=== PATIENT | female | born 1955 | race Caucasian/White ===

== ENCOUNTER → 2018-08-02 | Outpatient (CLI) | payer MEDICARE ==
--- NOTE | 2018-08-02 14:48 | Diagnostic Imaging Report ---
EXAMINATION: PA and lateral views of the chest. COMPARISON: None CLINICAL HISTORY: Chronic fatigue DISCUSSION: Lines/tubes: None. Lungs: The lungs are well inflated and clear. No pneumonia or pulmonary edema. Pleura: No pleural effusion or pneumothorax. Heart and mediastinum: The cardiomediastinal silhouette is normal. Bones and soft tissues: No acute bony abnormalities. IMPRESSION: No acute cardiopulmonary abnormalities. Signed by: Dr. Markie Rousseau M.D. on 08/02/2018 2:45 PM
[2018-08-02 15:01] LABS: CREATININE, SERUM 1.9 mg/dL (0.57-1.11)
== END ==
LOC: MRI 13:42
PROVIDERS: ATTEND Internal Medicine Infectious Disease
DX: G93.3 Postviral and related fatigue syndromes (principal); R53.82 Chronic fatigue, unspecified; R06.02 Shortness of breath
CPT/HCPCS: 36415; 71046; 82565; 84520

== ENCOUNTER → 2018-08-09 | Outpatient (CLI) | payer MEDICARE ==
--- NOTE | 2018-08-09 15:55 | Diagnostic Imaging Report ---
EXAMINATION: MRI of the brain without contrast. HISTORY: Memory loss COMPARISON: None. TECHNIQUE: Sagittal T2; axial DWI, T2, FLAIR, T1-IR, T2 gradient echo; coronal FLAIR. IMAGE QUALITY: Adequate. FINDINGS: Parenchyma: 1. No abnormal signal intensity 2. No mass, hemorrhage, acute or chronic infarcts. Skull: Unremarkable. Vessels: Expected flow voids present in the major arteries and dural sinuses. Extra-axial spaces: No abnormal signal intensity or mass effect. Brain volume: Within normal limits for age. Particularly no disproportionate lobar, medial temporal/hippocampal, brain stem or cerebellar atrophy. Ventricles: No hydrocephalus or displacement. 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 Foramen magnum: Unremarkable. Sella: Unremarkable. Paranasal / mastoid sinuses: Nonspecific partial opacification of the left plastic top assembler cells, likely effusion. IMPRESSION: No intracranial abnormalities, particularly no disproportionate lobar atrophy. Signed by: Dr. Jia Webb M.D. on 08/09/2018 3:51 PM
== END ==
LOC: MRI 14:03
PROVIDERS: ATTEND Internal Medicine Infectious Disease
DX: G93.3 Postviral and related fatigue syndromes (principal)
CPT/HCPCS: 70551

== ENCOUNTER → 2018-10-24 | Outpatient (CLI) | payer MEDICARE ==
--- NOTE | 2018-10-24 16:35 | Diagnostic Imaging Report ---
Renal ultrasound. History: CKD Discussion: Transverse and longitudinal images of the kidneys were obtained demonstrating small kidneys bilaterally with increased echogenicities. There is no evidence of hydronephrosis, mass or renal calculus. The right kidney measures 8.2 x 4.2 x 4.2 cm with no measurable cortex. The left kidney measures 8.4 x 3.5 x 3.6 cm with no measurable cortex. The urinary bladder is unremarkable with bilateral urinary jets noted. There is no evidence of free fluid. IMPRESSION: Small echogenic kidneys bilaterally. Signed by: Dr. Jono Whitman DO on 10/24/2018 4:32 PM
== END ==
LOC: US 14:28
PROVIDERS: ATTEND Internal Medicine Nephrology
DX: N18.3 Chronic kidney disease, stage 3 (moderate) (principal)
CPT/HCPCS: 76770; 76857

== ENCOUNTER → 2019-06-08 | Outpatient (CLI) | payer MEDICARE ==
--- NOTE | 2019-06-08 15:36 | Diagnostic Imaging Report ---
EXAM: Renal Ultrasound INDICATION: CKD stage III. COMPARISON: Renal ultrasound 10/24/2018. TECHNIQUE: Transverse and longitudinal images of the kidneys and bladder were obtained. FINDINGS: Right Kidney: Length: Measures 8.3 x 4.1 x 5.1 cm Appearance: Increased echogenicity. Collecting system: No hydronephrosis Stones: None Cyst/Mass: No evidence of solid mass. There is a simple appearing anechoic right mid pole cyst, measuring up to 1 cm. Left Kidney: Length: Measures 10.1 x 4.5 x 4.1 cm Appearance: Increased echogenicity. Collecting system: No hydronephrosis Stones: None Cyst/Mass: Multiple simple appearing anechoic cysts, measuring up to 1 cm. Bladder: Unremarkable. Bilateral ureteral jets are present. IMPRESSION: Increased bilateral renal echogenicity, suggestive of medical renal disease. Bilateral simple renal cysts. Signed by: Dr. Rita Orr MD on 06/08/2019 3:33 PM
== END ==
LOC: US 14:02
PROVIDERS: ATTEND Internal Medicine Nephrology
DX: N18.3 Chronic kidney disease, stage 3 (moderate) (principal)
CPT/HCPCS: 76770; 76857

== ENCOUNTER → 2019-12-13 | Outpatient (CLI) | payer MEDICARE ==
--- NOTE | 2019-12-13 15:48 | Diagnostic Imaging Report ---
Exam: Pelvic ultrasound. History: Pelvic pain Comparison: Renal ultrasound 06/08/2019 Findings: Transabdominal sonographic evaluation of the pelvis. Status post MANUEL/BSO. No mass lesions seen in bilateral adnexa eared the bladder appears unremarkable without wall thickening, stone, or mass lesion. Bilateral ureteral jets visualized. No free fluid in the pelvis. Impression: Status post MANUEL/BSO. No sonographic abnormalities. Signed by: Chloe Fallon MD on 12/13/2019 3:44 PM
== END ==
LOC: US 13:11
PROVIDERS: ATTEND Obstetrics & Gynecology
DX: R10.2 Pelvic and perineal pain (principal); R10.9 Unspecified abdominal pain
CPT/HCPCS: 76856

== ENCOUNTER 2020-01-19 07:50 | Emergency (ER) | payer MEDICARE ==
[~2020-01-19] VITALS: Ht 162.6 cm; Wt 76.2 kg
--- NOTE | 2020-01-19 08:19 | Emergency Department Note ---
History of Present Illnes History of Present Illness Chief Complaint: General Medicine Complaints History of Present Illness This is a 64 year old female PATIENT IN FROM HOME WITH COMPLAINTS OF IN LOWER ABDOMINAL/BACK/RECTAL AREA X 5 DAYS; STATES WAS SEEN AT HER PCP LAST TUESDAY AND THEN THE PAIN WORSENED. PATIENT ALERT AND ORIENTED, RESP EVEN AND NONLABORED, APPEARS IN NO DISTRESS, RATES PAIN 8/10 but ran out of her Harmony. Historian: Patient Arrival Mode: Car City Carrier Assistant Required: No Onset (how long ago): year(s) Location: rectum Quality: pain/spasm Radiation: Reports non-radiation Severity: severe Timing of current episode: intermittent Progression: waxing and waning Chronicity: chronic Context: Denies recent illness Relieving factors: none Exacerbating factors: none Associated symptoms: Reports denies other symptoms Past Medical/Family History Physician Review I have reviewed the patient's past medical and family history. Any updates have been documented here. Past Medical History Recent Fever: No Clinical Suspicion of Infectio: No New/Unexplained Change in Ment: No Past Medical History: Hypothyroidism, Anxiety, Depression, Other Mental Illness, Chronic Back Pain Other Medical History: SEASONAL ALLERGIES BIPOLAR Social History Smoking Cessation: Never Smoker Counseling Performed: No Alcohol Use: None Any Illegal Drug Use: No Physically hurt or threatened: No Family History Family history of heart diseas: No Other Any Pre-Existing Lines (PICC,: No Review of Systems Review of Systems Constitutional: Reports no symptoms EENTM: Reports no symptoms Cardiovascular: Reports no symptoms Respiratory: Reports no symptoms Gastrointestinal: Reports no symptoms Genitourinary: Reports no symptoms Musculoskeletal: Reports as per HPI Integumentary: Reports no symptoms Neurological: Reports no symptoms Psychological: Reports no symptoms Endocrine: Reports no symptoms Hematological/Lymphatic: Reports no symptoms Physical Exam Related Data Allergies: Coded Allergies: aripiprazole (Verified Allergy, Severe, 01/19/20) cephalexin (Verified Allergy, Severe, 01/19/20) gabapentin (Verified Allergy, Severe, 01/19/20) levofloxacin (Verified Allergy, Severe, 01/19/20) metoclopramide (Verified Allergy, Severe, 01/19/20) sulfamethoxazole (Verified Allergy, Severe, 01/19/20) tetracaine (Verified Allergy, Severe, 01/19/20) trazodone (Verified Allergy, Severe, 01/19/20) trimethoprim (Verified Allergy, Severe, 01/19/20) Triage Vital Signs Vital Signs Date Time Temp Pulse Resp B/P (MAP) Pulse Ox O2 Delivery O2 Flow Rate FiO2 01/19/20 08:02 98.6 88 20 168/82 98 Room Air Vital signs reviewed: Yes Physical Exam CONSTITUTIONAL Constitutional: Present well-developed, Present well-nourished HENT HENT: Present normocephalic, Present atraumatic, Present oropharynx clear/ moist, Present nose normal HENT L/R: Present left ext ear normal, Present right ext ear normal EYES Eyes: Reports PERRL, Reports conjunctivae normal NECK Neck: Present ROM normal PULMONARY Pulmonary: Present effort normal, Present breath sounds normal CARDIOVASCULAR Cardiovascular: Present regular rhythm, Present heart sounds normal, Present capillary refill normal, Present normal rate GASTROINTESTINAL Abdominal: Present soft, Present nontender, Present bowel sounds normal GENITOURINARY Genitourinary: Present exam deferred SKIN Skin: Present warm, Present dry MUSCULOSKELETAL Musculoskeletal: Present ROM normal NEUROLOGICAL Neurological: Present alert, Present oriented x 3, Present no gross motor or sensory deficits PSYCHOLOGICAL Psychological: Present mood/affect normal, Present judgement normal Assessment & Plan Medical Decision Making MDM no emergency, chronic recurrent problem, ran out of Harmony Reassessment Reassessment f/u pcp Assessment & Plan Final Impression: (1) Rectal pain Depart Disposition: HOME, SELF-CARE Last Vital Signs Date Time Temp Pulse Resp B/P (MAP) Pulse Ox O2 Delivery O2 Flow Rate FiO2 01/19/20 08:02 98.6 88 20 168/82 98 Room Air MICAELA GRECO MD Jan 19, 2020 08:19
[2020-01-19] MEDS ORDERED: HYDROCODONE/APAP 5MG-325MG TAB ONE (08:26)
[2020-01-19] MEDS ORDERED: HYDROCODONE/APAP 5MG-325MG TAB PO ONE (08:30)
== END 2020-01-19 09:19 | disposition home or self-care (01) ==
LOC: ER 08:15
DX: K62.89 Other specified diseases of anus and rectum (principal); E03.9 Hypothyroidism, unspecified; F41.9 Anxiety disorder, unspecified; F31.9 Bipolar disorder, unspecified; M54.9 Dorsalgia, unspecified; G89.29 Other chronic pain
CPT/HCPCS: 99283

== ENCOUNTER 2020-04-28 10:09 | Inpatient (IN) | payer MEDICARE ==
[~2020-04-28] VITALS: Ht 162.6 cm; Wt 67.3 kg
[2020-04-28 10:39] LABS: BASOPHILS # (AUTO) 0.1 (0.0-0.1); BASOPHILS % 1.7 % (0.0-1.0); EOSINOPHILS # (AUTO) 0.1 (0.0-0.4); EOSINOPHILS % 2.6 % (0.0-6.0); HEMATOCRIT 38.3 % (34.2-44.1); HEMOGLOBIN 12.3 g/dL (12.0-16.0); LYMPHOCYTES # (AUTO) 1.5 (1.0-3.2); MEAN CORPUSCULAR HEMOGLOBIN 32.1 pg (28-32); MEAN CORPUSCULAR HGB CONC 32.1 g/dL (31-35); MONOCYTES # (AUTO) 0.5 (0.2-0.8); MONOCYTES % 11.5 % (4.4-11.3); PLATELET COUNT 249 x10e3/uL (140-360); RED BLOOD COUNT 3.83 x10e6/uL (3.6-5.1)
--- NOTE | 2020-04-28 10:39 | Emergency Department Note ---
History of Present Illnes History of Present Illness Chief Complaint: Respiratory History of Present Illness This is a 65 year old female . Chief Complaint Comment X 2 WEEKS CONTINUOUS SHORTNESS OF BREATH, TIGHTNESS ON LOWER RIBS. NOTHING MAKES IT BETTER OR WORSE. O2 SAY 100%, NO OBVIOUS RESP. DISTRESS, NO USE OF ACCESSORY MUSCLES Historian: Patient Arrival Mode: Car Additional Treatment OPERATIONS RESEARCH ANALYST: NONE Onset (how long ago): week(s) Radiation: Reports back Onset quality: gradual Duration (how long): week(s) Timing of current episode: constant Chronicity: new Past Medical/Family History Physician Review I have reviewed the patient's past medical and family history. Any updates have been documented here. Past Medical History Recent Fever: No Clinical Suspicion of Infectio: No New/Unexplained Change in Ment: No Past Medical History: Hypothyroidism, Anxiety, Depression, Other Mental Illness Other Medical History: SEASONAL ALLERGIES BIPOLAR "PAINFUL BLADDER SYNDROME" Past Surgical History: Hysterectomy, T&A Review of Systems Review of Systems Constitutional: Reports no symptoms EENTM: Reports no symptoms Cardiovascular: Reports no symptoms Respiratory: Reports no symptoms Gastrointestinal: Reports as per HPI, Reports abdominal pain Genitourinary: Reports no symptoms Musculoskeletal: Reports no symptoms Integumentary: Reports no symptoms Neurological: Reports no symptoms Psychological: Reports no symptoms Endocrine: Reports no symptoms Hematological/Lymphatic: Reports no symptoms Physical Exam Related Data Allergies: Coded Allergies: aripiprazole (Verified Allergy, Severe, 04/28/20) cephalexin (Verified Allergy, Severe, 01/19/20) gabapentin (Verified Allergy, Severe, 01/19/20) levofloxacin (Verified Allergy, Severe, 01/19/20) metoclopramide (Verified Allergy, Severe, 01/19/20) sulfamethoxazole (Verified Allergy, Severe, 01/19/20) tetracaine (Verified Allergy, Severe, 01/19/20) trazodone (Verified Allergy, Severe, 01/19/20) trimethoprim (Verified Allergy, Severe, 01/19/20) Triage Vital Signs Vital Signs Date Time Temp Pulse Resp B/P (MAP) Pulse Ox O2 Delivery O2 Flow Rate FiO2 04/28/20 10:18 98.4 86 18 131/67 100 Room Air Vital signs reviewed: Yes Physical Exam CONSTITUTIONAL Constitutional: Present well-developed, Present well-nourished HENT HENT: Present normocephalic, Present atraumatic, Present oropharynx clear/moist, Present nose normal HENT L/R: Present left ext ear normal, Present right ext ear normal EYES Eyes: Reports PERRL, Reports conjunctivae normal NECK Neck: Present ROM normal PULMONARY Pulmonary: Present effort normal, Present breath sounds normal, Present respiratory distress CARDIOVASCULAR Cardiovascular: Present regular rhythm, Present heart sounds normal, Present capillary refill normal, Present normal rate GASTROINTESTINAL Abdominal: Present soft, Present nontender, Present bowel sounds normal GENITOURINARY Genitourinary: Present exam deferred SKIN Skin: Present warm, Present dry MUSCULOSKELETAL Musculoskeletal: Present ROM normal NEUROLOGICAL Neurological: Present alert, Present oriented x 3, Present no gross motor or sensory deficits PSYCHOLOGICAL Psychological: Present mood/affect normal, Present judgement normal Results Laboratory Lab results reviewed: Yes Laboratory comments Laboratory Tests Test 04/28/20 10:31 White Blood Count 4.17 x10e3/uL (4.8-10.8) Red Blood Count 3.83 x10e6/uL (3.6-5.1) Hemoglobin 12.3 g/dL (12.0-16.0) Hematocrit 38.3 % (34.2-44.1) Mean Corpuscular Volume 100.0 fL (81-99) Mean Corpuscular Hemoglobin 32.1 pg (28-32) Mean Corpuscular Hemoglobin Concent 32.1 g/dL (31-35) Red Cell Distribution Width 13.0 % (11.7-14.4) Platelet Count 249 x10e3/uL (140-360) Neutrophils (%) (Auto) 48.0 % (38.7-80.0) Lymphocytes (%) (Auto) 36.0 % (18.0-39.1) Monocytes (%) (Auto) 11.5 % (4.4-11.3) Eosinophils (%) (Auto) 2.6 % (0.0-6.0) Basophils (%) (Auto) 1.7 % (0.0-1.0) Neutrophils # (Auto) 2.0 (2.1-6.9) Lymphocytes # (Auto) 1.5 (1.0-3.2) Monocytes # (Auto) 0.5 (0.2-0.8) Eosinophils # (Auto) 0.1 (0.0-0.4) Basophils # (Auto) 0.1 (0.0-0.1) Absolute Immature Granulocyte (auto 0.01 x10e3/uL (0-0.1) Sodium Level 139 mmol/L (136-145) Potassium Level 3.8 mmol/L (3.5-5.1) Chloride Level 104 mmol/L (98-107) Carbon Dioxide Level 23 mmol/L (22-29) Anion Gap 15.8 mmol/L (8-16) Blood Urea Nitrogen 21 mg/dL (7-26) Creatinine 2.42 mg/dL (0.57-1.11) Estimat Glomerular Filtration Rate 20 ML/MIN (60-) BUN/Creatinine Ratio 9 (6-25) Glucose Level 98 mg/dL (74-118) Calcium Level 10.4 mg/dL (8.4-10.2) Total Bilirubin 0.4 mg/dL (0.2-1.2) Aspartate Amino Transf (AST/SGOT) 15 IU/L (5-34) Alanine Aminotransferase (ALT/SGPT) 11 IU/L (0-55) Alkaline Phosphatase 58 IU/L (40-150) Creatine Kinase 18 IU/L (29-168) Creatine Kinase MB < 1.00 ng/mL (0-4.3) Troponin I < 0.001 ng/mL (0-0.300) B-Type Natriuretic Peptide < 10.0 pg/mL (0-100) Total Protein 7.5 g/dL (6.5-8.1) Albumin 4.0 g/dL (3.5-5.0) Globulin 3.5 g/dL (2.3-3.5) Albumin/Globulin Ratio 1.1 (0.8-2.0) Imaging Imaging results reviewed: Yes Impressions IMPRESSION: 1. There are scattered cortical calcifications of the bilateral kidneys. 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 Kidneys also demonstrate nodular scarring. These findings may relate to prior infection, inflammatory change or ischemic insult. Negative for hydronephrosis or acute appearing surrounding inflammatory changes. 2. Negative for bowel obstruction. No surrounding inflammatory changes are noted. A few nonspecific fluid-filled small bowel loops are noted in the inferior midline abdomen which can be seen in patients with enteritis. Signed by: Dorian Pratt MD on 04/28/2020 1:08 PM Assessment & Plan Medical Decision Making MDM 65-year-old female arrives to the ED with complaints of chest pain and shortness of breath. No evidence of ACS, pericarditis, myocarditis, pulmonary embolism, pneumothorax, pneumonia, Zoster, or esophageal perforation. Historically not abrupt in onset, tearing or ripping, pulses symmetric, no evidence of aortic dissection. Patient continues to complain of chest pain and shortness of breath and required hospital admission for cardiac monitoring Assessment & Plan Final Impression: (1) Chest pain (2) Dyspnea Depart Disposition: ADMITTED Last Vital Signs Date Time Temp Pulse Resp B/P (MAP) Pulse Ox O2 Delivery O2 Flow Rate FiO2 04/28/20 10:18 98.4 86 18 131/67 100 Room Air LUCY HUA DO Apr 28, 2020 10:39
[2020-04-28 11:00] LABS: ALANINE AMINOTRANSFERASE 11 IU/L (0-55); ALBUMIN/GLOBULIN RATIO 1.1 (0.8-2.0); ALKALINE PHOSPHATASE 58 IU/L (40-150); ANION GAP 15.8 mmol/L (8-16); BLOOD UREA NITROGEN 21 mg/dL (7-26); BUN/CREATININE RATIO 9 (6-25); CALCIUM 10.4 mg/dL (8.4-10.2); CARBON DIOXIDE 23 mmol/L (22-29); CHLORIDE 104 mmol/L (98-107); CREATINE KINASE 18 IU/L (29-168); CREATININE, SERUM 2.42 mg/dL (0.57-1.11); EST GLOMERULAR FILTRATION RATE 20 ML/MIN (60-); GLUCOSE 98 mg/dL (74-118); POTASSIUM 3.8 mmol/L (3.5-5.1); SODIUM 139 mmol/L (136-145)
--- NOTE | 2020-04-28 11:12 | Diagnostic Imaging Report ---
TECHNIQUE: Frontal view of the chest. INDICATION: ^Y ^CP ^[id number] ^1025 COMPARISON: 08/02/2018 DISCUSSION: Limited evaluation due to portable technique. Lines and hardware: Stable. Heart and mediastinum: Stable. Lungs and pleura: No focal airspace consolidation. No pleural effusion. No pneumothorax. Soft tissues and bones: No acute abnormality. IMPRESSION: Negative for acute intrathoracic process. Signed by: Dorian Pratt MD on 04/28/2020 11:08 AM
[2020-04-28] MEDS ORDERED: KETOROLAC TROMETHAMINE 30 MG/ML VIAL IV STA (11:35)
[2020-04-28] MEDS ORDERED: LORAZEPAM INJ 2 MG/ML VIAL IV ONE (11:45)
[2020-04-28] MEDS: PHENAZOPYRIDINE HCL 100 MG TAB PO SCH ×2 (11:50→18:00)
[2020-04-28 12:44] LABS: CREATINE KINASE MB < 1.00 ng/mL (0-4.3)
--- NOTE | 2020-04-28 13:12 | Diagnostic Imaging Report ---
EXAM: CT Abdomen and Pelvis WITHOUT intravenous contrast INDICATION: ^Y ^ABD PAIN ^[id number] ^1230. COMPARISON: None. TECHNIQUE: Abdomen and pelvis were scanned utilizing a multidetector helical scanner from the lung base to the pubic symphysis without administration of IV contrast. Coronal and sagittal reformations were obtained. Routine technique was performed. IV CONTRAST: None ORAL CONTRAST: None COMPLICATIONS: None RADIATION DOSE: Total DLP: 322 mGy*cm Dose modulation, iterative reconstruction, and/or weight based adjustment of the mA/kV was utilized to reduce the radiation dose to as low as reasonably achievable. FINDINGS: LOWER THORAX: Basilar scarring/atelectasis is noted. HEPATOBILIARY: No focal hepatic lesions. No biliary ductal dilatation. The gallbladder appears unremarkable. SPLEEN: No splenomegaly. PANCREAS: No focal masses or ductal dilatation. ADRENALS: No adrenal nodules. KIDNEYS/URETERS: Multiple cortical renal calcifications are noted bilaterally with lobular contours. Negative for perinephric fluid collection. Negative for hydronephrosis. Bilateral subcentimeter hypodense lesions are too small to accurately characterize and are probably related to cysts. PELVIC ORGANS/BLADDER: Bladder is unremarkable. Uterus is surgically absent. PERITONEUM / RETROPERITONEUM: No free air or fluid. Small fat-containing umbilical hernia is noted. LYMPH NODES: No lymphadenopathy. VESSELS: Unremarkable. GI TRACT: Limited due to lack of IV and oral contrast. Stomach and portions of the colon are decompressed limiting evaluation. No surrounding inflammatory changes are noted. Normal appendix is noted. Negative for obstruction. There are a few fluid-filled small bowel loops in the inferior midline abdomen, nonspecific. BONES AND SOFT TISSUES: No acute osseous abnormalities. No suspicious lytic or blastic lesion. Left convex curvature of the lumbar spine is noted. Soft tissues are unremarkable. IMPRESSION: 1. There are scattered cortical calcifications of the bilateral kidneys. 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 Kidneys also demonstrate nodular scarring. These findings may relate to prior infection, inflammatory change or ischemic insult. Negative for hydronephrosis or acute appearing surrounding inflammatory changes. 2. Negative for bowel obstruction. No surrounding inflammatory changes are noted. A few nonspecific fluid-filled small bowel loops are noted in the inferior midline abdomen which can be seen in patients with enteritis. Signed by: Dorian Pratt MD on 04/28/2020 1:08 PM
[2020-04-28] MEDS ORDERED: HYDRALAZINE HCL 20 MG/ML VIAL IV PRN (17:30)
[2020-04-28] MEDS ORDERED: ACETAMINOPHEN 325 MG TAB PO PRN (17:30)
[2020-04-28] MEDS: ASPIRIN 81 MG CHEW TAB PO SCH (18:25)
[2020-04-28] MEDS: FAMOTIDINE 20 MG TAB PO SCH (18:26)
--- NOTE | 2020-04-28 19:00 | NUR ---
Patient admitted to unit room 293 from ER. Oriented to room, environment and call light. Call light within reach. Teaching provided to call for assistance or on the onset of pain or SOB.
[2020-04-28 19:17] LABS: CREATINE KINASE 15 IU/L (29-168)
[2020-04-28 19:30] VITALS: BP 15/73
--- NOTE | 2020-04-28 19:39 | Diagnostic Imaging Report ---
Perfusion Lung Scan NOTE: Lung ventilation studies with xenon are not being performed per the recommendation of the Society of Nuclear [employer] and [employer] Imaging. It is not possible to be certain that the ventilation system is adequately disinfected. Ventilation studies with Tc-99m DTPA particles is contraindicated because the delivery by nebulization generates too many water droplets from the patient's airway. Reason for exam: Difficulty breathing; SOB x 2 weeks; history of asthma. Comparison: Chest radiograph 04/28/2020 Discussion: Ventilation images were not obtained. See note above. Perfusion images of the lungs were obtained in multiple projections following intravenous administration of approximately 5.5 mCi of Tc-99m MAA. Distribution of tracer is mildly irregular throughout the lungs. No segmental perfusion defects of any size are identified. The cardiomediastinal silhouette is unremarkable. Impression: 1. Scan findings represent a VERY LOW probability for acute pulmonary embolic disease based on the perfusion-only modified PIOPED II criteria. Concurrent ventilation study would not alter the assigned probability for acute PE. 2. Scan findings are compatible with diffuse parenchymal and/or obstructive lung disease. Signed by: Dr. Genevieve Oreilly M.D. on 04/28/2020 7:36 PM
[2020-04-28] MEDS: KETOROLAC TROMETHAMINE 30 MG/ML VIAL IV PRN (20:00)
[2020-04-28 20:22] VITALS: BP 115/73
[2020-04-28 21:00] VITALS: BP 115/73
[2020-04-28] MEDS ORDERED: MIRALAX17 GM PO (23:10)
[2020-04-28] MEDS ORDERED: [UNRECOGNIZED DRUG - OTHER] PO (23:10)
[2020-04-28] MEDS ORDERED: LAMOTRIGINE100 MG PO (23:10)
[2020-04-28] MEDS ORDERED: ELMIRON100 MG PO ×2 (23:10)
[2020-04-28] MEDS ORDERED: DIOVAN160 MG PO (23:10)
[2020-04-28] MEDS ORDERED: NORCO 5-325 TA1 EACH PO (23:10)
[2020-04-28] MEDS ORDERED: LEVOTHYROXINE50 MCG PO (23:10)
[2020-04-28] MEDS ORDERED: LIDOPATCH1 EACH TOP (23:10)
[2020-04-28] MEDS ORDERED: LEVOCETIRIZINE D5 MG PO (23:10)
[2020-04-28] MEDS ORDERED: PROBIOTIC PO (23:10)
[2020-04-28] MEDS ORDERED: [UNRECOGNIZED DRUG - OTHER] SL (23:10)
[2020-04-28] MEDS ORDERED: CLONAZEPAM0.5 MG PO ×2 (23:10)
[2020-04-28] MEDS ORDERED: PREMARIN VAGINAL CRE VG (23:10)
[2020-04-29] VITALS (8 sets, daily range): BP systolic 94–135; BP diastolic 55–73
[2020-04-29 04:00] LABS: CREATINE KINASE 18 IU/L (29-168)
[2020-04-29] MEDS: KETOROLAC TROMETHAMINE 30 MG/ML VIAL IV PRN (06:13)
--- NOTE | 2020-04-29 06:42 | NUR ---
Page Dr Anupama Scott regarding consult for intersitial cystitis. ( Aleida) Awaiting call back
--- NOTE | 2020-04-29 06:44 | NUR ---
Return call for Dr Anupama Scott. New order for post residual void x1 and place results on chart will see when rounding.
--- NOTE | 2020-04-29 06:45 | NUR ---
Spoke to Dr Jose Antonio Slaughter regarding consult for chest pain and dyspnea. Will see patient.
[2020-04-29 06:55] LABS: BASOPHILS # (AUTO) 0.1 (0.0-0.1); BASOPHILS % 1.1 % (0.0-1.0); EOSINOPHILS # (AUTO) 0.2 (0.0-0.4); EOSINOPHILS % 3.4 % (0.0-6.0); HEMATOCRIT 33.2 % (34.2-44.1); HEMOGLOBIN 10.9 g/dL (12.0-16.0); LYMPHOCYTES # (AUTO) 1.9 (1.0-3.2); LYMPHOCYTES % 44.4 % (18.0-39.1); MEAN CORPUSCULAR HEMOGLOBIN 33.5 pg (28-32); MEAN CORPUSCULAR HGB CONC 32.8 g/dL (31-35); MEAN CORPUSCULAR VOLUME 102.2 fL (81-99); MONOCYTES # (AUTO) 0.5 (0.2-0.8); MONOCYTES % 12.4 % (4.4-11.3); NEUTROPHILS # (AUTO) 1.7 (2.1-6.9); NEUTROPHILS % 38.7 % (38.7-80.0); PLATELET COUNT 205 x10e3/uL (140-360); RED BLOOD COUNT 3.25 x10e6/uL (3.6-5.1); RED CELL DISTRIBUTION WIDTH 12.8 % (11.7-14.4)
[2020-04-29] MEDS: CLONAZEPAM 0.5 MG TAB PO PRN ×2 (06:57→12:56)
--- NOTE | 2020-04-29 07:05 | NUR ---
Bedside report and walking rounds completed with oncoming nurse. Patient in bed with call light within reach. No issues or concerns noted.
--- NOTE | 2020-04-29 07:15 | NUR ---
Post residual void 169ml.
[2020-04-29 07:25] LABS: CALCIUM 9.3 mg/dL (8.4-10.2); CREATININE, SERUM 3.03 mg/dL (0.57-1.11)
[2020-04-29 07:33] LABS: THYROID STIMULATING HORMONE 0.204 uIU/mL (0.350-4.940)
[2020-04-29 07:45] LABS: CHOL/HDL RATIO 3.2 (3.0-3.6)
--- NOTE | 2020-04-29 08:05 | NUR ---
RECEIVED PATIENT RESTING IN BED. VERBALIZED 7/10 RIGHT FLANK PAIN. PT IN STABLE CONDITION AND IN NO DISTRESS. CALL LIGHT WITHIN REACH. WILL CONTINUE TO MONITOR.
--- NOTE | 2020-04-29 08:05 | NUR ---
CORRECTION. PT COMPLAINED 6/10 BLADDER PAIN.
[2020-04-29] MEDS: PHENAZOPYRIDINE HCL 100 MG TAB PO SCH ×3 (09:31→17:54)
[2020-04-29] MEDS: FAMOTIDINE 20 MG TAB PO SCH ×2 (09:31→17:54)
[2020-04-29] MEDS: ASPIRIN 81 MG CHEW TAB PO SCH (09:31)
[2020-04-29] MEDS ORDERED: B&O 60MG R/S 60 MG SUPP PR PRN (09:45)
[2020-04-29 11:58] LABS: CLARITY,URINE CLEAR (CLEAR); COLOR,URINE ORANGE (YELLOW); LEUKOCYTE ESTERASE ,URINE NEGATIVE (NEGATIVE); NITRITE,URINE POSITIVE (NEGATIVE)
[2020-04-29 11:59] LABS: BILIRUBIN,URINE NEGATIVE (NEGATIVE); KETONES,URINE NEGATIVE (NEGATIVE); PROTEIN,URINE DIPSTICK NEGATIVE (NEGATIVE); URINE UROBILINOGEN 0.2 mg/dL (0.2 - 1)
[2020-04-29 12:09] LABS: BACTERIA,URINE FEW /HPF; EPITHELIAL CELLS,URINE RARE /LPF; RBC,URINE 0-5 /HPF (0-5); WBC,URINE (MAN) 0-5 /HPF (0-5)
--- NOTE | 2020-04-29 12:10 | Consultation ---
DATE OF CONSULTATION: Pulmonary Critical Care Consultation. CHIEF COMPLAINT: Dyspnea HISTORY OF PRESENT ILLNESS: The patient is a 65-year-old woman with a history of recurrent chronic kidney disease and prior pyelonephritis. She also has a history of asthma. For over the past two weeks, she has noticed increased dyspnea. She has tightness when she breathes and a sense of air hunger. She has a vague sense of pain in her chest. She does not complain of any fevers. She has minimal cough. PAST SURGICAL HISTORY: 1. Status post hysterectomy. 2. Status post tonsillectomy. PAST MEDICAL HISTORY: 1. Chronic kidney disease. 2. Interstitial cystitis. 3. Bipolar illness. 4. Hypothyroidism. ALLERGIES: THE PATIENT IS ALLERGIC TO LEVOFLOXACIN, SULFAMETHOXAZOLE, TRAZODONE AND CEPHALEXIN. SOCIAL HISTORY: The patient is not an active drinker. She was a prior smoker. FAMILY HISTORY: Noncontributory. REVIEW OF SYSTEMS: No fever. No headache. She is not complaining of any neck pain. She does have some dyspnea and some vague chest tightness. She has no abdominal pain. She has no nausea or vomiting. She has no leg edema. PHYSICAL EXAMINATION: VITAL SIGNS: The blood pressure is 120/65 and the pulse is 67. The saturation is 100%. HEENT: Shows no facial swelling or erythema. LYMPHATIC: Shows no submandibular, cervical, or supraclavicular adenopathy. CARDIAC: Reveals regular rate and rhythm with normal S1 and S2. LUNGS: Auscultation of lungs reveals clear breath sounds bilaterally. There is no wheezing. ABDOMEN: Soft and nontender. There is no rebound or guarding. EXTREMITIES: Shows no leg edema or calf tenderness. There is no cyanosis or clubbing. SKIN: Shows no rashes. NEUROLOGICAL: Shows no focal abnormalities. LABORATORY DATA: White blood cell count is 4.35, hemoglobin is 10.9. The platelet count is 205. The BUN to creatinine ratio is 29 to 3.03 and the other electrolytes are within normal limits. RADIOGRAPHIC DATA: Chest x-ray shows no active disease. V/Q scan shows no evidence of pulmonary emboli. IMPRESSION: 1. Dyspnea of unclear cause. 2. Chronic renal insufficiency, stage IV. 3. Interstitial cystitis. 4. Recurrent pyelonephritis. 5. Hypothyroidism. 6. Bipolar illness. PLAN: 1. Obtain echocardiogram. 2. Wean oxygen as needed. 3. Bronchodilators as needed. MD ENRIQUETA Pelayo/YADIEL /[id number]
--- NOTE | 2020-04-29 13:16 | Consultation ---
DATE OF CONSULTATION: 04/29/2020 Urology Consultation REASON FOR CONSULTATION: Interstitial cystitis. HISTORY OF PRESENT ILLNESS: Frida Dhillon is a 65-year-old woman who is being managed by a joss house keeper. The joss house keeper had closed her practice and referred her to Dr. Blake Parnell, who is urogynecologist. The patient has not had a urodynamic, has not had a cystoscopy and not had a hydrodistention if she was started on interstitial cystitis treatment with an intravesical cocktail. The patient reports bladder pain. She has incomplete bladder emptying with a postvoid residual by bladder scan of 169 this morning. The patient also has dysuria. She reports both stress and urge type urinary incontinence, also reports recurrent urinary tract infections. PAST MEDICAL/SURGICAL HISTORY: 1. Numerous allergies. 2. Bipolar disorder. 3. "Painful bladder syndrome.". 4. Status post hysterectomy. 5. Status post tonsillectomy and adenoidectomy. 6. Chronic renal insufficiency. CURRENT MEDICATIONS: Please refer to the MAR. ALLERGIES: PLEASE REFER TO THE MAR. SOCIAL HISTORY: The patient denies current smoking, ethanol, and drug use. FAMILY HISTORY: Noncontributory to the active urological problems. REVIEW OF SYSTEMS: Discussed as above history of present illness, past medical history, otherwise negative for all systems. PHYSICAL EXAMINATION: GENERAL: Healthy-appearing 65-year-old woman, lying in bed, no apparent distress, she is currently afebrile. VITAL SIGNS: Stable. ABDOMEN: Soft, nondistended, nontender without costovertebral angle tenderness, kidneys not palpable without hepatosplenomegaly. No obvious evidence of hernia. For the remaining physical examination systems, please refer to the admission history and physical in chart. LABORATORY STUDIES: White blood cell count is low at 4350, hemoglobin 10.9, and platelets 205,000. The patient's creatinine is 3.03, which is elevated from where was in the ER 2.42. COVID testing is pending. CT scan of the abdomen and pelvis was done without contrast. It revealed multiple cortical calcifications bilaterally with lobular contour and bilateral hypodense lesions consistent with small cysts evaluate on study. No hydronephrosis was noted. There were no acute inflammatory changes. There is no urinalysis noted and despite the complaint related to the urinary tract. Even note the patient's admission was for shortness of breath. ASSESSMENT: 1. Possible interstitial cystitis. 2. Incomplete bladder emptying. 3. Dysuria. 4. Mixed-type urinary incontinence. 5. Urinary tract infections. 6. Chronic renal insufficiency. 7. Leukopenia. 8. Anemia. 9. Bilateral renal cysts. PLAN: 1. B and O suppositories as needed. 2. Catheterized urine for urinalysis with microscopy and urine culture. 3. The patient is to follow up in the office for urodynamic study. I would not continue interstitial cystitis treatment without the appropriate workup for interstitial cystitis first. Thank you much for involving us in care of your patient. We will be happy to follow along with you as well as an outpatient. MD ISAIAS Rivers/YADIEL /[id number]
[2020-04-29 14:01] LABS: CREATINE KINASE 21 IU/L (29-168)
[2020-04-29 16:10] LABS: CREATINE KINASE MB < 1.00 ng/mL (0-4.3)
--- NOTE | 2020-04-29 16:10 | NUR ---
Nutrition Screen Note RD Recommendation for Physician: Continue diet as ordered Plan of Care: RD following, monitoring for tolerance and adequacy Nutrition reason for involvement: MST Primary Diagnose(s): Chest pain, dyspnea Ht:64 in Wt:148.38lbs BMI:25.5 kg/m2 IBW:120lbs RD Assessment:(04/29/2020) Initial encounter with patient. Pt with a diagnosis of interstitial cystitis and has provided a list of potential trigger foods she avoids: spicy foods, fried foods, onions, tomatoes, caffeine, carbonated beverages, acidic foods, refined sugars. Pt denies any nausea, vomiting, or diarrhea. Pt denies any difficulty chewing or swallowing. Pt denies any known food allergies. Good appetite/PO intake. Pt states that she has lost about 20lbs over the past 4 months due to lifestyle/diet changes. Current Diet: Cardiac diet. Malnutrition Evaluation (04/29/2020) The patient does not meet criteria for a specified degree of malnutrition at this time. Will re-evaluate at follow-up as appropriate. Diet Education Needs Assessment: Diet education not indicated. Diet Adequacy: Meeting calorie needs, Meeting protein needs, Meeting fluid needs Tolerance: Tolerating PO Nutrition Care Level: Jus Jeff RD,LD,CNSC
[2020-04-29] MEDS ORDERED: CONJUGATED ESTROGENS VG SCH (17:00)
[2020-04-29] MEDS ORDERED: POLYETHYLENE GLYCOL 3350 17 GM PACK PO PRN (17:00)
[2020-04-29] MEDS ORDERED: LIDOCAINE 4% PATCH TP PRN (17:00)
[2020-04-29] MEDS: SODIUM CHLORIDE 0.9% 1000ML 1,000 ML IV SCH (17:54)
[2020-04-29] MEDS: HYDROCODONE/APAP 5MG-325MG TAB PO PRN (17:55)
--- NOTE | 2020-04-29 19:22 | Consultation ---
DATE OF CONSULTATION: Initial Nephrology Consultation Report REASON FOR CONSULTATION: Acute kidney injury. HISTORY OF PRESENT ILLNESS: Ms. Frida Dhillon is a 65-year-old female, who is well known to my associate, Dr. Arevalo. The patient was admitted to the hospital this time because of some shortness of breath that had been going on. The patient follows up with Dr. Arevalo in his Nephrology Clinic. She was last seen by him as a tele health visit about a few days ago. Apparently, at that time, she was prescribed maybe some Augmentin for urinary tract infection. The patient has chronic kidney disease secondary to chronic lithium use/hypertension. Apparently, her last creatinine it went from 1.8 to about 1.6. She also has been referred to Hematology for monoclonal gammopathy of unknown significance. PAST MEDICAL HISTORY: The patient has a history of hypertension, anxiety, and bipolar disorder. The patient has been on lithium for several years. She has history of asthma, history of hypothyroidism, history of chronic fatigue syndrome, fibromyalgia, and chronic kidney disease stage 3. PAST SURGICAL HISTORY: She has had history for breast tumor removed, tonsillectomy, hysterectomy, surgery of the right knee, and hemorrhoidectomy. REVIEW OF SYSTEMS: As per HPI. PHYSICAL EXAMINATION: VITAL SIGNS: Blood pressure 119/73, pulse 77, and respirations 17. GENERAL: The patient is in no acute distress. HEENT: No increased JVD. CARDIOVASCULAR: Regular rate and rhythm. LUNGS: Decreased breath sounds at bases bilaterally, otherwise clear to auscultation. ABDOMEN: Positive bowel sounds. EXTREMITIES: No edema, cyanosis, or clubbing. LABORATORY RESULTS: Sodium 139, potassium 4, chloride 107, bicarbonate 23, BUN and creatinine 29 and 3.0 respectively. Urinalysis shows positive nitrite only, everything else is negative. IMPRESSION/PLAN: 1. Acute kidney injury, superimposed on chronic kidney disease. 2. Chronic kidney disease. 3. Shortness of breath. 4. Monoclonal gammopathy of unknown significance. 5. Acute kidney injury. PLAN: At the present time, NSAIDs, SHARP-2 inhibitors, and IV contrast should be avoided. Her renal function seems to have deteriorated. Her creatinine has risen sharply. I will start some IV fluids just for 1 L to correct any prerenal component. CT of the abdomen rules out hydronephrosis. Urine culture has been sent to see if she has any urinary tract infection. I will follow the patient with you. Thank you, Dr. Xiao, for allowing me to participate in the care of this patient with you. Ather MD DEMARCO Aguilar/YADIEL /[id number]
[2020-04-29] MEDS: LORAZEPAM INJ 2 MG/ML VIAL IV PRN (19:41)
--- NOTE | 2020-04-29 19:53 | NUR ---
PATIENT AMBULATING FROM RESTROOM BACK TO BED. NON SKID SOCKS APPLIED. PT IN NO DISTRESS. RESPIRATIONS EVEN AND BREATHING UNLABORED. TELE APPLIED. IV INFUSING AT 75 ML/HR. PT VOIDED 150 ML OF URINE.BEDSIDE SHIFT REPORT GIVEN TO ONCOMING NURSE.
[2020-04-29] MEDS ORDERED: POLYETHYLENE GLYCOL 3350 17 GM PACK PO SCH (21:00)
[2020-04-29] MEDS: LORATADINE 10 MG TAB PO SCH (21:00)
[2020-04-29] MEDS ORDERED: NON-FORMULARY MEDICATION (Levocetirizine Dihydrochloride 1 TAB) PO SCH (21:00)
[2020-04-29] MEDS: CLONAZEPAM 0.5 MG TAB PO SCH (21:47)
--- NOTE | 2020-04-29 22:48 | History and Physical ---
PCP: Dr. Roberta Ramirez. OUTPATIENT UROGYNECOLOGIST: Dr. Blake Parnell. OUTPATIENT PSYCHIATRIST: Dr. Newsome. CONSULTING PHYSICIANS: 1. Dr. Davon Arevalo with Nephrology. 2. Dr. Denzel Scott with Urology. 3. Dr. Terrence Slaughter with Pulmonology. CHIEF COMPLAINT: Shortness of breath and chest pain. HISTORY OF PRESENT ILLNESS: The patient is a 65-year-old female admitted via the emergency department with increased dyspnea over the past 2 weeks. She reported tightness when she breathes and a sense of air hunger with a vague sense of chest pain to the last dipper. The patient states "the air feels toxic." Her dysuria from the "painful bladder syndrome" is constant, states that it has been going on for over 10 years. The patient reports urinating less amount than usual. She was very anxious last night due to the bladder pain and received one time dose of Ativan, which was beneficial. She is currently seen in room 293, in no acute distress, alone. PAST MEDICAL HISTORY: Recurrent chronic kidney disease, pyelonephritis, asthma, interstitial cystitis, "painful bladder syndrome," bipolar illness, anxiety, chronic fatigue syndrome, hypothyroidism, hypertension, recurrent UTIs, numerous allergies, irritable bowel syndrome. PAST SURGICAL HISTORY: Hysterectomy, tonsillectomy, hemorrhoidectomy in 2019, right breast tumor removed which was benign and possibly other surgeries. FAMILY HISTORY: Father had obstructive sleep apnea, neither had an PA or CVA. Mother had CHF, hypertension, and hypothyroidism. SOCIAL HISTORY: The patient smoked half a pack a day for 2 or 3 years and quit in her 20s. She drank some alcohol in her 20s, but has since quit. She also smoked marijuana and used cocaine when she was in her 20s, but quit. ALLERGIES: SHE HAS MULTIPLE ALLERGIES. REGLAN/METOCLOPRAMIDE, TRAZODONE, GABAPENTIN, TRIMETHOPRIM, SULFA/SULFAMETHOXAZOLE, CEPHALEXIN, TETRACAINE, ABILIFY, BACTRIM, AND LEVAQUIN. HOME MEDICATIONS: Clonazepam 0.5 mg at bedtime and one-quarter tablet p.r.n., Elmiron 100 mg 2 capsules before breakfast, one capsule before dinner, lamotrigine 200 mg after breakfast, levocetirizine 5 mg tablet at bedtime, levothyroxine 50 mcg tablet before breakfast, lidocaine patches 5% p.r.n., Premarin vaginal cream 0.5 g Tuesday, Tuesday and Tuesday, valsartan 160 mg tablet after breakfast, hydrocodone APAP 5/125 mg p.r.n., B12 5000 mcg tablet chewed and one sublingual p.r.n., MiraLAX 17 g at bedtime, and Renadyl probiotic 2 capsules daily. REVIEW OF SYSTEMS: CONSTITUTIONAL: The patient states she has had unintentional weight loss of 20 pounds in the last 4 months, possibly due to difficulty in eating, which she attributes to the shortness of breath. She denies chills or fever. EYES, EARS, NOSE, AND THROAT: She wears glasses, otherwise no complaints. RESPIRATORY: Per history of present illness and apparently affecting her ability to eat. GENITOURINARY: Stress and urge urinary incontinence, dysuria, and incomplete bladder emptying. PSYCHIATRIC: Takes clonazepam at home. Has known underlying anxiety and bipolar illness. INTEGUMENTARY: No complaints. CARDIOVASCULAR: No complaints of chest pain or palpitations. GASTROINTESTINAL: She does have nausea. States her last bowel movement was Tuesday. She has IBS and has had lots of gas. She states she has constipation without use of MiraLAX and would like that restarted. MUSCULOSKELETAL: No specific complaints of muscle weakness. Has underlying history of chronic fatigue syndrome. No complaints of muscle cramps. NEUROLOGIC: Tingling down the legs, more so than the arms. Recent headache and dizziness. ENDOCRINE: Denies history of prediabetes or diabetes. HEMATOLOGIC/LYMPHATIC: No complaints of bleeding or bruising. PHYSICAL EXAMINATION: VITAL SIGNS: Temperature 98.0, afebrile, pulse 77, blood pressure 119/73, respirations 17, and oxygen saturation 99% on room air. Height 5 feet 4 inches, weight 140 pounds, BMI 25.4. GENERAL: Supine in bed. No acute distress. Anxious. LUNGS: Clear to auscultation, diminished in the bases. Respiratory pattern even and unlabored. No supplemental oxygen. HEENT: EOMI. Oropharynx clear. NECK: Supple. No lymphadenopathy, thyromegaly, or JVD. CARDIOVASCULAR: Regular rate and rhythm. No murmur. ABDOMEN: Bowel sounds positive. Soft and nontender. EXTREMITIES: No pitting edema. No clubbing, cyanosis, or signs of DVT. NEUROLOGICAL: GCS 15. Nonfocal. LABORATORY DATA: Today, WBCs 4.35, hemoglobin 10.9, hematocrit 33.2, and platelets 205. Sodium 139, potassium 4.0, chloride 107, CO2 23, BUN 29, creatinine 3.03 (2.42), estimated GFR 15 (20), glucose 90, and calcium 9.3. Creatine kinase 21, CK-MB less than 1, and troponin I 0.004. Cardiac biomarkers negative x4 sets. Triglycerides 104, cholesterol 154, LDL 85, HDL 48, and TSH 0.204. Urinalysis; pH 5, specific gravity 1.01, nitrite positive, leukocyte esterase negative, few bacteria. Coronavirus PCR collected 04/28, remains pending. Urine culture and sensitivity pending. B-type natriuretic peptide was less than 10. IMAGING/OTHER: Bladder scan done today showed postvoid residual of 169 mL at 7:15 this morning. Echocardiogram has been ordered and is pending. V/Q lung scan negative. Chest x-ray negative for acute intrathoracic process. CT of the abdomen and pelvis done 04/28, showed scattered cortical calcifications of the bilateral kidneys. 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 Kidneys also demonstrate nodular scarring. Negative for bowel obstruction. ASSESSMENT/PLAN: 1. Acute kidney injury on chronic kidney disease, stage 4 with long-term use of lithium. I will change the patient from cardiac diet to renal diet. Nephrology following, appreciate recommendations. BUN 29, creatinine 3.03, estimated GFR 15 with worsening of values noted. We will get a lithium level in the morning. Serial daily BMP. 2. Dyspnea, etiology idiopathic. Pulmonology consulted and following. Currently, the patient not requiring supplemental oxygen. Respirations even and nonlabored. Chest x-ray negative. V/Q scan negative. Follow up on echocardiogram results. Monitor. 3. Possible interstitial cystitis. Urology consulted and following. Appreciate recommendations. 4. Possible acute urinary tract infection, present on admission, with recurrent pyelonephritis. Await final urine culture and sensitivity results. Continue Pyridium and belladonna. 5. Hypothyroidism. TSH 0.204. We will change her levothyroxine dose from 50 to 25 mcg daily. 6. Bipolar illness and severe anxiety. The patient currently calm, but states her anxiety was severe last night and that the Ativan helped. We will continue her clonazepam, which she uses at home and had p.r.n. Ativan. 7. Irritable bowel syndrome. We will add MiraLAX b.i.d. p.r.n. 8. Prophylaxis. Lina, SCDs. History and physical, observation status, billing code [id number], time spent 70 minutes. Dictated by Tan Tapia, VOCATIONAL NURSING INSTRUCTOR MD ALESSANDRA LermaP/MODL /[id number]
[2020-04-30] VITALS (9 sets, daily range): BP systolic 110–151; BP diastolic 49–87
[2020-04-30] MEDS: SODIUM CHLORIDE 0.9% 1000ML 1,000 ML IV SCH (05:40)
[2020-04-30] MEDS ORDERED: LEVOTHYROXINE SODIUM 50 MCG TAB PO SCH ×2 (06:00)
[2020-04-30] MEDS: LEVOTHYROXINE SODIUM 25 MCG TABLET PO SCH (06:04)
[2020-04-30 06:39] LABS: BASOPHILS # (AUTO) 0.1 (0.0-0.1); EOSINOPHILS # (AUTO) 0.2 (0.0-0.4); EOSINOPHILS % 3.5 % (0.0-6.0); HEMATOCRIT 30.1 % (34.2-44.1); HEMOGLOBIN 9.8 g/dL (12.0-16.0); LYMPHOCYTES # (AUTO) 1.8 (1.0-3.2); LYMPHOCYTES % 34.4 % (18.0-39.1); MEAN CORPUSCULAR HEMOGLOBIN 32.2 pg (28-32); MEAN CORPUSCULAR HGB CONC 32.6 g/dL (31-35); MONOCYTES # (AUTO) 0.6 (0.2-0.8); MONOCYTES % 11.2 % (4.4-11.3); NEUTROPHILS # (AUTO) 2.5 (2.1-6.9); NEUTROPHILS % 49.7 % (38.7-80.0); PLATELET COUNT 190 x10e3/uL (140-360); RED BLOOD COUNT 3.04 x10e6/uL (3.6-5.1); RED CELL DISTRIBUTION WIDTH 12.3 % (11.7-14.4)
[2020-04-30 07:06] LABS: MAGNESIUM 1.8 MG/DL (1.3-2.1); PHOSPHORUS 4.5 MG/DL (2.3-4.7)
--- NOTE | 2020-04-30 07:25 | NUR ---
Bedside report and waling rounds completed with oncoming nurse. Patient in bed with call light within reach. No concerns noted. Patient requesting to speak to charge nurse.
--- NOTE | 2020-04-30 07:28 | NUR ---
Charge nurse notified that patient requesting to speak to charge nurse.
[2020-04-30 07:32] LABS: CALCIUM 8.7 mg/dL (8.4-10.2); CREATININE, SERUM 2.74 mg/dL (0.57-1.11)
--- NOTE | 2020-04-30 08:15 | NUR ---
Pt request to speak with Charge nurse, pt request change of attending from Dr. Singer to Dr. Flores, will notify both Physicians of change.
--- NOTE | 2020-04-30 08:20 | NUR ---
spoke with Dr. Singer re: patient request change of attending to Dr. Yuki Flores, paged Dr. Flores awaiting call back,
[2020-04-30] MEDS: LACTOBACILLUS ACIDOPHILUS CAPSULE PO SCH (08:36)
[2020-04-30] MEDS: VALSARTAN 160 MG TAB PO SCH (08:36)
[2020-04-30] MEDS: PHENAZOPYRIDINE HCL 100 MG TAB PO SCH ×3 (08:37→15:54)
[2020-04-30] MEDS: FAMOTIDINE 20 MG TAB PO SCH ×2 (08:37→17:16)
[2020-04-30] MEDS: ASPIRIN 81 MG CHEW TAB PO SCH (08:37)
[2020-04-30] MEDS: ESTROGENS CONJUGATED VAGINAL CR 45 GM TUBE PV SCH (08:39)
[2020-04-30] MEDS: LAMOTRIGINE 100 MG TAB PO SCH (08:45)
[2020-04-30] MEDS: ONDANSETRON HCL INJ 2MG/ML 2ML 2 MG/ML VIAL IV PRN ×2 (08:53→17:16)
[2020-04-30] MEDS ORDERED: [UNRECOGNIZED DRUG - OTHER] PO SCH (09:00)
--- NOTE | 2020-04-30 09:09 | NUR ---
spoke with Dr. Yuki Flores informed of change of attending to his services from Dr. Singer no further orders at this time.
--- NOTE | 2020-04-30 09:20 | NUR ---
Patient is refusing to take all the pyridium medication.
[2020-04-30] MEDS ORDERED: SODIUM CHLORIDE 0.9% 1000ML 1,000 ML IV ONE (14:30)
--- NOTE | 2020-04-30 14:48 | NUR ---
Progress Note Subjective I have now taken over the care of this patient per her request. No acute overnight medical events. States her anxiety is moderately improved but still has significant bladder pain from interstitial cystitis. Patient states she notices she gets more short of breath when her anxiety is worsening and improves after receiving ativan. Could be having panic attacks. Physical Exam Vitals: Temp: 98.1P: 70BP: 125/87RR: 20SpO2: 97% General Appearance: The patient is alert, oriented and in mild distress. Appears euvolemic. Skin: Warm and hydrated without any rash. HEENT: Head is normocephalic, atraumatic. Nontender sinuses. Pupils are equal and reactive. The nares are patent. Oropharynx is moist and clear without lesions. Neck: Supple without lymphadenopathy. No JVD. Thyroid NV/CHAPLAINCY Heart / Cardiovascular: Regular rate and rhythm. Normal S1 and S2 without S3/S4. No murmurs, rubs or gallops. Peripheral pulses symmetric +2. Respiratory / Chest: No crackles or wheezes are heard. Symmetric breath sounds. Preserved chest expansion. Abdomen: Soft, nontender, nondistended with good bowel sounds heard. No clinical organomegaly. Renal: There is no costovertebral angle tenderness. Extremities: Without cyanosis, clubbing or edema. Preserved ROM. Neurological: Gross nonfocal. Patient oriented x 3. Cranial nerves II - XII Grossly intact. DTRs +2. MS: 5/5 globally. Assessment/Plan #ASHU on CKD stage 4 - Dr Aguilar following, appreciate assistance - likely pre-renal, assess for improvement after 1L IVF - no hydronephrosis on imaging - UA without obvious UTI; urine culture pending, no growth to date #Dyspnea - Dr Slaughter following, appreciate assistance - TTE pending - now off of oxygen with stable saturations - bronchodilators as needed - if all other causes ruled out, could likely be 2/2 to her anxiety. #Possible interstitial cystitis - Dr Denzel Scott following, appreciate assistance - patient is to follow up in Dr Scott's clinic for urodynamic study to properly diagnose interstitial cystitis; if confirmed she can continue proper therapy at that time #Hypothyroidism - continue levothyroxine #Bipolar disorder #Severe Anxiety - continue home clonazepam, lamotrigine - lorazepam PRN; may need prescription on discharge - will need to follow-up with her psychiatrist for further titration of medications Gumaro Flores MD Internal Medicine
--- NOTE | 2020-04-30 14:58 | Progress Note ---
DATE: 04/30/2020 Renal Progress Note SUBJECTIVE: Events over the past 24 hours have been noted. The patient complains of somewhat of a decrease in appetite. She says she is not eating as much as what she thinks she should be eating. PHYSICAL EXAMINATION: VITAL SIGNS: Blood pressure 118/55 and pulse 63. GENERAL: The patient is in no acute distress. HEENT: No increased JVD. CARDIOVASCULAR: Regular rate and rhythm. LUNGS: Decreased breath sounds at bases bilaterally. ABDOMEN: Positive bowel sounds. Nontender and nondistended. EXTREMITIES: No edema, cyanosis, or clubbing. LABORATORY RESULTS: White count is 5, hemoglobin and hematocrit are 9.8 and 30.1 respectively. Sodium 136, potassium 4, chloride 106, bicarbonate 20, BUN and creatinine 26 and 2.7 respectively. IMPRESSION/PLAN: 1. Acute kidney injury superimposed on chronic kidney disease. 2. Chronic kidney disease. PLAN: The patient is on Ketoralac. I will go ahead and have that discontinued for right now. Her renal function did improve a little with the IV fluids. She is on her second liter. I will go ahead and continue the normal saline at 75 mL an hour for one more liter. The urine culture shows no growth so far. Ather MD DEMARCO Aguilar/YADIEL /[id number]
--- NOTE | 2020-04-30 19:15 | NUR ---
Bedside report received. Pt sitting up in bed. Pt denies pain but reports bouts of nausea off and on that began yesterday. Pt aware that she cannot have next dose of PRN Zofran until 2316. Pt states that she is ok for now and can wait until then. Instructed pt to call for assistance if needed-Call light within reach.
[2020-04-30] MEDS: CLONAZEPAM 0.5 MG TAB PO SCH (20:45)
[2020-04-30] MEDS: LORATADINE 10 MG TAB PO SCH (20:45)
--- NOTE | 2020-04-30 20:48 | NUR ---
After administration of pts Claritin and Klonopin pt vomited. Noted both meds in emesis basis. Pt now requesting PRN IV Ativan r/t anxiety and desire for sleep.
[2020-04-30] MEDS: LORAZEPAM INJ 2 MG/ML VIAL IV PRN (21:00)
[2020-05-01] VITALS (10 sets, daily range): BP systolic 88–125; BP diastolic 47–67
--- NOTE | 2020-05-01 00:34 | NUR ---
Provided pt with warm blanket per request. Pt denies other needs, questions or concerns at this time. Call light within reach.
--- NOTE | 2020-05-01 00:45 | NUR ---
Pt requests to not be disturbed for 0400 vital signs if she is asleep. Instructed pt to call for assistance if needed-Call light within reach.
[2020-05-01] MEDS: ONDANSETRON HCL INJ 2MG/ML 2ML 2 MG/ML VIAL IV PRN (05:30)
[2020-05-01 05:34] LABS: BASOPHILS % 0.6 % (0.0-1.0); EOSINOPHILS # (AUTO) 0.1 (0.0-0.4); EOSINOPHILS % 1.8 % (0.0-6.0); HEMATOCRIT 32.8 % (34.2-44.1); HEMOGLOBIN 10.5 g/dL (12.0-16.0); LYMPHOCYTES # (AUTO) 0.3 (1.0-3.2); LYMPHOCYTES % 8.4 % (18.0-39.1); MEAN CORPUSCULAR HEMOGLOBIN 32.1 pg (28-32); MEAN CORPUSCULAR VOLUME 100.3 fL (81-99); MONOCYTES # (AUTO) 0.5 (0.2-0.8); MONOCYTES % 16.1 % (4.4-11.3); NEUTROPHILS # (AUTO) 2.5 (2.1-6.9); NEUTROPHILS % 73.1 % (38.7-80.0); PLATELET COUNT 172 x10e3/uL (140-360); RED BLOOD COUNT 3.27 x10e6/uL (3.6-5.1); RED CELL DISTRIBUTION WIDTH 12.8 % (11.7-14.4)
[2020-05-01 06:00] LABS: ANION GAP 12.4 mmol/L (8-16); CALCIUM 8.5 mg/dL (8.4-10.2); CREATININE, SERUM 2.39 mg/dL (0.57-1.11); POTASSIUM 4.4 mmol/L (3.5-5.1)
[2020-05-01] MEDS: LEVOTHYROXINE SODIUM 25 MCG TABLET PO SCH (06:00)
--- NOTE | 2020-05-01 06:10 | NUR ---
Pt refused morning dose of Synthroid r/t to nausea stating she would throw it up.
--- NOTE | 2020-05-01 07:00 | NUR ---
BEDSIDE SHIFT REPORT RECEIVED FROM THE STOCK BUYER RN. EDUCATED PT ABOUT FALL PRECAUTIONS. PT VERBALIZED UNDERSTANDING. CALL LIGHT WITH IN EASY REACH. INSTRUCTED PT TO USE CALL LIGHT FOR ALL THE NEEDS. BED IS LOW AND LOCKED. SIDE RAILS X2. BED ALARM IS ON. PT DENIES NEEDS AT THIS TIME.
[2020-05-01] MEDS: FAMOTIDINE 20 MG TAB PO SCH ×2 (08:18→17:02)
[2020-05-01] MEDS: ASPIRIN 81 MG CHEW TAB PO SCH (08:18)
[2020-05-01] MEDS: LAMOTRIGINE 100 MG TAB PO SCH (08:19)
[2020-05-01] MEDS: LACTOBACILLUS ACIDOPHILUS CAPSULE PO SCH (08:19)
[2020-05-01] MEDS: POLYETHYLENE GLYCOL 3350 17 GM PACK PO SCH ×2 (08:20→17:00)
[2020-05-01] MEDS: PHENAZOPYRIDINE HCL 100 MG TAB PO SCH ×3 (08:20→17:02)
[2020-05-01] MEDS: VALSARTAN 160 MG TAB PO SCH (09:00)
--- NOTE | 2020-05-01 09:00 | NUR ---
PAGED DR. Parth MICHAEL AND REPORTED PT VITAL SIGNS. WAITING FOR THE CALL BACK FROM THE
--- NOTE | 2020-05-01 09:01 | NUR ---
PT IS AAOX4. NO DISTRESS NOTED. PT DENIES NEEDS AT THIS TIME.
[2020-05-01 09:18] LABS: EOSINOPHILS % (MANUAL) 3 % (0-7); LYMPHOCYTES % (MANUAL) 9 % (19-48); MONOCYTES % (MANUAL) 13 % (3.4-9.0); NEUTROPHILS % (MANUAL) 74 % (40-74); PLATELET ESTIMATE ADEQUATE; PLATELET MORPHOLOGY COMMENT NORMAL; RBC MORPHOLOGY COMMENT NORMAL
--- NOTE | 2020-05-01 09:26 | NUR ---
PAGED LAB REGARDING NEW LAB ORDERS
[2020-05-01] MEDS ORDERED: SODIUM CHLORIDE 0.9% 1000ML 1,000 ML IV ONE (10:00)
--- NOTE | 2020-05-01 10:00 | NUR ---
PER THE PT, PT DOESN'T WANT PYRIDIUM ANYMORE.
[2020-05-01] MEDS ORDERED: VANCOMYCIN 1GM/NS 250 ML 250 ML IV ONE (10:30)
[2020-05-01 10:36] LABS: INR 1.31; PROTHROMBIN TIME 16.9 seconds (11.9-14.5)
[2020-05-01 10:37] LABS: PARTIAL THROMBOPLASTIN TIME 31.7 seconds (23.8-35.5)
[2020-05-01 10:58] LABS: FERRITIN 53.48 ng/mL (4.63-204.00)
--- NOTE | 2020-05-01 11:00 | NUR ---
CONTAINER AT BEDSIDE FOR C DIFF CULTURE. PT IS AWARE. WAITING FOR BM.
[2020-05-01] MEDS ORDERED: ACETAMINOPHEN 325 MG TAB PO PRN (11:30)
[2020-05-01] MEDS: CEFTRIAXONE SOD 1 GM/NS 50 ML 50 ML IV SCH (12:29)
[2020-05-01] MEDS: VANCOMYCIN 250MG/5ML ORAL SOLN PO SCH ×3 (12:41→23:52)
[2020-05-01] MEDS: LORAZEPAM INJ 2 MG/ML VIAL IV PRN ×2 (12:46→21:15)
--- NOTE | 2020-05-01 14:00 | Progress Note ---
DATE: 05/01/2020 Renal Progress Note SUBJECTIVE: Events over the past 24 hours have been noted. Apparently, the patient had an episode of hypotension last night or this morning around maybe 9 or 10 o'clock. Her blood pressure was 88/50. For that reason, a normal saline bolus was given. Now, the blood pressure is 110/47 and pulse 89. PHYSICAL EXAMINATION: VITAL SIGNS: Blood pressure 110/47, pulse 89, and respiration 20. GENERAL: The patient is in no acute distress. HEENT: No increased JVD. CARDIOVASCULAR: Regular rate and rhythm. LUNGS: Clear to auscultation bilaterally. ABDOMEN: Positive bowel sounds. Nontender and nondistended. EXTREMITIES: No edema, cyanosis, or clubbing. LABORATORY RESULTS: White count is 3.3, hemoglobin and hematocrit are 10 and 33 respectively. Sodium 142, potassium 4.4, chloride 114, bicarbonate 20, BUN and creatinine 22 and 2.4 respectively. IMPRESSION/PLAN: 1. Acute kidney injury superimposed on chronic kidney disease. 2. Chronic kidney disease. The patient's renal function is improving with the IV fluids and she got the third bag. In addition to the third liter of IV fluid, she also got a bolus because her blood pressure was low. Continue present management. Ather MD DEMARCO Aguilar/YADIEL /[id number]
--- NOTE | 2020-05-01 14:09 | Progress Note ---
DATE: Renal Progress Note ADDENDUM: The patient is on Diovan. I will go ahead and hold that for the time being until her acute kidney injury resolves in addition to holding the ketorolac. Ather MD DEMARCO Aguilar/YADIEL /[id number]
--- NOTE | 2020-05-01 14:54 | NUR ---
Progress Note Subjective 05/01: No acute overnight events. However this morning, patient had hypotensive episode but was asymptomatic. Given 1 L fluid bolus in addition to her maintenance IVF with improvement. Started broad spectrum antibiotic coverage due to concern of sepsis. Also testing for Cdiff given diarrhea. 04/30: I have now taken over the care of this patient per her request. No acute overnight medical events. States her anxiety is moderately improved but still has significant bladder pain from interstitial cystitis. Patient states she notices she gets more short of breath when her anxiety is worsening and improves after receiving ativan. Could be having panic attacks. Physical Exam Vitals: Temp: 98.1P: 89BP: 110/47RR: 20SpO2: 97% General Appearance: The patient is alert, oriented and in mild distress. Appears euvolemic. Skin: Warm and hydrated without any rash. HEENT: Head is normocephalic, atraumatic. Nontender sinuses. Pupils are equal and reactive. The nares are patent. Oropharynx is moist and clear without lesions. Neck: Supple without lymphadenopathy. No JVD. 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 Normal S1 and S2 without S3/S4. No murmurs, rubs or gallops. Peripheral pulses symmetric +2. Respiratory / Chest: No crackles or wheezes are heard. Symmetric breath sounds. Preserved chest expansion. Abdomen: Soft, nontender, nondistended with good bowel sounds heard. No clinical organomegaly. Renal: There is no costovertebral angle tenderness. Extremities: Without cyanosis, clubbing or edema. Preserved ROM. Neurological: Gross nonfocal. Patient oriented x 3. Cranial nerves II - XII Grossly intact. DTRs +2. MS: 5/5 globally. Assessment/Plan #Hypotension, resolved #Sepsis #Coagulase negative staph UTI - hypotension 05/01 AM, improved with bolus; lactate negative - leukopenic down to 3k WBC, could be 2/2 sepsis vs bone marrow dysfunction - initial UA unremarkable however urine culture positive and patient complains of dysuria - started Vancomycin for coagulase negative staph on urine culture, pending sensitivities - started Ceftriaxone for empiric broad spectrum coverage as well as coverage for gram negatives in urine culture, pending speciation - blood cultures pending - Dr Shah consulted for assistance with UTI and sepsis #Diarrhea #Concern for Cdiff - patient began having diarrhea 05/01 AM, last laxative on 04/29 - she had taken amoxicillin about 1 week ago in outpatient setting; denies prior hx of cdiff - Cdiff sent, place on contact isolation - Started PO vancomycin empirically to treat for Cdiff, pending toxin results #ASHU on CKD stage 4, improving - Dr Aguilar following, appreciate assistance - likely pre-renal, assess for improvement after 1L IVF - no hydronephrosis on imaging - UA without obvious UTI; urine culture pending, no growth to date #Dyspnea - Dr Slaughter following, appreciate assistance - TTE pending - now off of oxygen with stable saturations - bronchodilators as needed - if all other causes ruled out, could likely be 2/2 to her anxiety. #Possible interstitial cystitis - Dr Denzel Scott following, appreciate assistance - patient is to follow up in Dr Scott's clinic for urodynamic study to properly diagnose interstitial cystitis; if confirmed she can continue proper therapy at that time #Hypothyroidism - continue levothyroxine #Bipolar disorder #Severe Anxiety - continue home clonazepam, lamotrigine - lorazepam PRN; may need prescription on discharge - will need to follow-up with her psychiatrist for further titration of medications Gumaro Flores MD Internal Medicine
--- NOTE | 2020-05-01 15:07 | NUR ---
Addendum to progress note on 05/01 Regarding her anemia: reticulocyte 1%, index is 0.5 indicating hypoproliferative process; pending iron panel and ferritin, B12, folate
--- NOTE | 2020-05-01 18:35 | Progress Note ---
DATE: SUBJECTIVE: The patient has less dyspnea. Overall, her symptoms are improved. She still has some nausea and vomiting. PHYSICAL EXAMINATION: VITAL SIGNS: The blood pressure is 93/58, saturation is 98% on room air, and the pulse is 96. HEENT: Shows no facial swelling or erythema. LYMPHATIC: Shows no submandibular, cervical, or supraclavicular adenopathy. CARDIAC: Reveals regular rate and rhythm with normal S1 and S2. LUNGS: Auscultation of lungs reveals rhonchorous breath sounds bilaterally. There is no wheezing. ABDOMEN: Soft and nontender. There is no rebound or guarding. EXTREMITIES: Show no leg edema or calf tenderness. There is no cyanosis or clubbing. SKIN: Shows no rashes. LABORATORY DATA: White blood cell count is 3.35, the hemoglobin is 10.5, and the platelet count is 172. The BUN to creatinine ratio is 22 to 2.38 and the other electrolytes are within normal limits. IMPRESSION: 1. Chronic renal insufficiency, stage 4. 2. Infectious diarrhea. 3. Interstitial cystitis. 4. Hypothyroidism. 5. Bipolar illness. PLAN: 1. Continue current medications. 2. Antiemetics. 3. The patient is ready for discharge from my perspective. MD ENRIQUETA Pelayo/YADIEL /[id number]
--- NOTE | 2020-05-01 19:14 | NUR ---
BEDSIDE SHIFT REPORT GIVEN TO THE INVESTMENT EXECUTIVE RN. PT DENIED FURTHER NEEDS.
--- NOTE | 2020-05-01 19:15 | NUR ---
patient received awake, alert, lying quietly in bed. no c/o pain noted at this time. pm assessment complete. patient instructed to call for assistance when needed.
--- NOTE | 2020-05-01 20:57 | Consultation ---
DATE OF CONSULTATION: HISTORY OF PRESENT ILLNESS: Ms. Dhillon is a 65-year-old white female, who has history of recurrent UTI, chronic kidney disease, asthma, who has been sick for couple of weeks. The patient said she is not feeling well. Chest discomfort. The patient has history of chronic kidney disease, interstitial cystitis, bipolar disorder, hypothyroidism, tonsillectomy, hysterectomy, comes in with complaint of that she has cystitis about 2 weeks ago, not feeling well, came here. She was seen by Dr. Terrence Slaughter. She was seen by Urology. The patient had a urine culture, showed coag-negative Staph, gram-negative bacilli, that was colony count of 10,000 to 50,000. Blood cultures are negative. Her white count is 3.35, hemoglobin 10, hematocrit 32. Her COVID-19 was negative. Her clostridium difficile is pending. Her lithium is less than 0.3. Her white count is 3.35. MEDICATIONS: She is currently on vancomycin, Pepcid, Ativan, Rocephin, probiotic, Zofran, Klonopin. REVIEW OF SYSTEMS: HEENT: Negative. PULMONARY: Negative. CARDIAC: Negative. PHYSICAL EXAMINATION: GENERAL: Currently alert and oriented. VITAL SIGNS: Stable, afebrile. HEENT: She is not icteric. NECK: Supple. CHEST: Clear. HEART: S1 and S2. ABDOMEN: Soft. Bowel sounds present. EXTREMITIES: No edema. SKIN: No rash. IMPRESSION: 1. Cystitis, clinically seems to be stable. 2. Diarrhea, could be due to antibiotic. 3. Chronic kidney disease. 4. Interstitial cystitis. No need for antibiotic at the present time. I would recommend to give her Hiprex 1 g p.o. b.i.d. Discontinue antibiotic. 5. Bipolar disorder. 6. Hypothyroidism. Supportive care. We will follow with you. MD WHIT Nelson/YADIEL /[id number]
[2020-05-01] MEDS: LORATADINE 10 MG TAB PO SCH (21:00)
[2020-05-01] MEDS: CLONAZEPAM 0.5 MG TAB PO SCH (21:00)
--- NOTE | 2020-05-01 21:15 | NUR ---
patient medicated with ativan 1 mg ivp per patients request. scheduled klonopin not given at this time.
[2020-05-02 01:50] VITALS: BP 115/51
[2020-05-02 05:12] LABS: BASOPHILS % 0.5 % (0.0-1.0); EOSINOPHILS # (AUTO) 0.4 (0.0-0.4); EOSINOPHILS % 6.2 % (0.0-6.0); HEMATOCRIT 30.5 % (34.2-44.1); HEMOGLOBIN 9.6 g/dL (12.0-16.0); LYMPHOCYTES # (AUTO) 1.5 (1.0-3.2); LYMPHOCYTES % 25.1 % (18.0-39.1); MEAN CORPUSCULAR HEMOGLOBIN 32.5 pg (28-32); MEAN CORPUSCULAR HGB CONC 31.5 g/dL (31-35); MEAN CORPUSCULAR VOLUME 103.4 fL (81-99); MONOCYTES # (AUTO) 0.6 (0.2-0.8); MONOCYTES % 9.7 % (4.4-11.3); NEUTROPHILS # (AUTO) 3.4 (2.1-6.9); NEUTROPHILS % 58.2 % (38.7-80.0); PLATELET COUNT 157 x10e3/uL (140-360); RED BLOOD COUNT 2.95 x10e6/uL (3.6-5.1); RED CELL DISTRIBUTION WIDTH 13.2 % (11.7-14.4)
[2020-05-02] MEDS: VANCOMYCIN 250MG/5ML ORAL SOLN PO SCH ×2 (05:27→11:26)
[2020-05-02] MEDS: LEVOTHYROXINE SODIUM 25 MCG TABLET PO SCH (05:27)
[2020-05-02 05:29] LABS: CALCIUM IONIZED 1.3 mmol/L (1.09-1.30)
[2020-05-02 05:45] LABS: ANION GAP 12.4 mmol/L (8-16); CALCIUM 8.8 mg/dL (8.4-10.2); CREATININE, SERUM 2.29 mg/dL (0.57-1.11); POTASSIUM 4.4 mmol/L (3.5-5.1)
[2020-05-02 06:21] LABS: MAGNESIUM 1.7 MG/DL (1.3-2.1); PHOSPHORUS 2.1 MG/DL (2.3-4.7)
[2020-05-02 06:26] VITALS: BP 128/90
--- NOTE | 2020-05-02 07:00 | NUR ---
BEDSIDE SHIFT REPORT RECEIVED FROM THE PROCESS STEWARD RN. PT IS RESTING ON BED WITH EYES ARE CLOSED. CALL LIGHT WITH IN EASY REACH. BED IS LOW AND LOCKED. SIDE RAILS X2. BED ALARM IS ON.
[2020-05-02 08:15] VITALS: BP 118/65
[2020-05-02 08:30] VITALS: BP 118/65
[2020-05-02] MEDS: FAMOTIDINE 20 MG TAB PO SCH ×2 (08:30→16:46)
[2020-05-02] MEDS ORDERED: VANCOMYCIN 750MG/NS 150ML IVPB 150 ML IV SCH (09:00)
[2020-05-02] MEDS: PHENAZOPYRIDINE HCL 100 MG TAB PO SCH ×3 (09:00→16:46)
[2020-05-02] MEDS: POLYETHYLENE GLYCOL 3350 17 GM PACK PO SCH ×2 (09:00→16:46)
[2020-05-02] MEDS: ASPIRIN 81 MG CHEW TAB PO SCH (09:35)
[2020-05-02] MEDS: LACTOBACILLUS ACIDOPHILUS CAPSULE PO SCH (09:35)
[2020-05-02] MEDS: LAMOTRIGINE 100 MG TAB PO SCH (09:35)
[2020-05-02] MEDS: ESTROGENS CONJUGATED VAGINAL CR 45 GM TUBE PV SCH (09:40)
[2020-05-02] MEDS: CLONAZEPAM 0.5 MG TAB PO PRN (09:43)
[2020-05-02 12:26] VITALS: BP 108/58
[2020-05-02] MEDS: CEFTRIAXONE SOD 1 GM/NS 50 ML 50 ML IV SCH (12:30)
[2020-05-02] MEDS: LORAZEPAM INJ 2 MG/ML VIAL IV PRN (12:55)
--- NOTE | 2020-05-02 14:26 | Progress Note ---
DATE: 05/02/2020 Renal Progress Note SUBJECTIVE: Events over the past 24 hours noted. The patient has no chest pain, no shortness of breath. PHYSICAL EXAMINATION: VITAL SIGNS: Blood pressure 108/58, pulse 85, respirations 17. GENERAL: The patient is no acute distress. HEENT: No increased JVD. CARDIOVASCULAR: Regular rate and rhythm. LUNGS: Clear to auscultation bilaterally. ABDOMEN: Positive bowel sounds. Nontender, nondistended. EXTREMITIES: No edema, cyanosis or clubbing. LABORATORY RESULTS: White count 5.8, hemoglobin and hematocrit 9.6 and 30 respectively. Sodium 143, potassium 4.4, chloride 117, bicarbonate 18, BUN and creatinine 13 and 2.3 respectively. IMPRESSION: 1. Acute kidney injury, superimposed on chronic kidney disease. 2. Chronic kidney disease. PLAN: The patient's renal function is slowly improving. It may be the patient might be at her new baseline. The ARB has been stopped, but her blood pressure is still borderline low, so there is no need to at this time to substitute anything for the ARB. Later on if she needs another antihypertensive, we can use a calcium channel anali if needed, NSAID Ketorolac has been taken off her MAR. From a renal standpoint, she is stable to be discharged. She can follow up with Dr. Arevalo within one month. Ather MD DEMARCO Aguilar/YADIEL /[id number]
[2020-05-02] MEDS: HYDROCODONE/APAP 5MG-325MG TAB PO PRN (14:29)
--- NOTE | 2020-05-02 15:36 | NUR ---
INFECTIOUS DISEASE PROGRESS NOTE DR. MARIA EUGENIA JORDAN HISTORY OF PRESENT ILLNESS: Ms. Dhillon is a 65-year-old white female, who has history of recurrent UTI, chronic kidney disease, asthma, who has been sick for couple of weeks. The patient said she is not feeling well. Chest discomfort. The patient has history of chronic kidney disease, interstitial cystitis, bipolar disorder, hypothyroidism, tonsillectomy, hysterectomy, comes in with complaint of that she has cystitis about 2 weeks ago, not feeling well, came here. She was seen by Dr. Terrence Slaughter. She was seen by Urology. The patient had a urine culture, showed coag-negative Staph, gram-negative bacilli, that was colony count of 10,000 to 50,000. Blood cultures are negative. Her white count is 3.35, hemoglobin 10, hematocrit 32. Her COVID-19 was negative. Her clostridium difficile is pending. Her lithium is less than 0.3. Her white count is 3.35. MEDICATIONS: She is currently on vancomycin, Pepcid, Ativan, Rocephin, probiotic, Zofran, Klonopin. REVIEW OF SYSTEMS: HEENT: Negative. PULMONARY: Negative. CARDIAC: Negative. PHYSICAL EXAMINATION: GENERAL: Currently alert and oriented. VITAL SIGNS: Stable, afebrile. HEENT: She is not icteric. NECK: Supple. CHEST: Clear. HEART: S1 and S2. ABDOMEN: Soft. Bowel sounds present. EXTREMITIES: No edema. SKIN: No rash. IMPRESSION: 1. Cystitis, clinically seems to be stable. 2. Diarrhea, could be due to antibiotic. 3. Chronic kidney disease. 4. Interstitial cystitis. No need for antibiotic at the present time. I would recommend to give her Hiprex 1 g p.o. b.i.d. Discontinue antibiotic. 5. Bipolar disorder. 6. Hypothyroidism. Supportive care. We will follow with you. Dulce Patrick MSN, [employer], [facility]- Maria Eugenia Jordan M.D.
[2020-05-02 15:58] VITALS: BP 142/71
[2020-05-02] MEDS ORDERED: FOSFOMYCIN TROMETHAMINE 3 GM PACKET PO ONE (16:30)
--- NOTE | 2020-05-02 16:45 | NUR ---
DR. Parth MICHAEL AT BEDSIDE. OKAY TO D/C PT PER DR. Parth MICHAEL, DR. GUPTA, DR. BURGESS AND SEBAS ROBERTO.
--- NOTE | 2020-05-02 17:00 | NUR ---
RX WILL BE FAXED TO PT PHARMACY PER SEBAS ROBERTO. PT AND DR Parth MICHAEL AWARE.
--- NOTE | 2020-05-02 17:05 | NUR ---
NO MACROBID RX PER DR. Parth MICHAEL.
--- NOTE | 2020-05-02 18:00 | NUR ---
PAGELane MICHAEL AND REVIEWED PT DISCHARGE MEDICATIONS WITH
[2020-05-02] MEDS ORDERED: LORAZEPAM2 MG/1 M1 PO (18:08)
--- NOTE | 2020-05-02 18:15 | NUR ---
PT IS WAITING FOR FAMILY MEMBER TO CHILD WELFARE CONSULTANT THE PT.
--- NOTE | 2020-05-02 18:44 | NUR ---
Discharge Summary Patient: Frida Dhillon Admission date: 04/29/2020 Discharge date: 05/02/2020 Attending physician: Gumaro Flores MD (initially admitted under Dr Prabhjot Xiao and switched to sc after 1 day) Consultation: Dr Tre Shah - ID; Dr Celine Aguilar - Nephrology; Dr Denzel Scott - Urology Admitting Diagnosis: Diarrhea, ASHU on CKD 4, Dyspnea, interstitial cystitis, hypothyroidism, bipolar disorder, severe anxiety Discharge Diagnosis: Dehydration, Acute cystitis due to Ecoli and Coagulase negative Staph, Diarrhea, ASHU on CKD 4, Dyspnea, interstitial cystitis, hypothyroidism, bipolar disorder, severe anxiety Procedures: None Hospital Course: Ms Dhillon is a 65 yo F with PMH significant for CKD4, severe anxiety, depression, and bipolar disorder who presented with complaints of shortness of breath. Patient was initially admitted under Dr Ugalde but was switched to my service after 1 day. Patients initial workup was non-revealing for cause of dysp griselda and it appeared to be secondary to her anxiety. She also had ASHU on CKD4 for which Dr Aguilar was consulted and recommended IV fluids which improved her renal function. She did have 1 episode of hypotension which improved with a bolus of fluids. She had episodes of diarrhea this admission which was concerning for Cdiff as she had been on antibiotics recently, Cdiff tested and w as negative. She was on oral Vanc for 1 day pending Cdiff and was discontinued a fter it resulted negative. Also was placed on broad spectrum antibiotics after her episode of hypotension out of concern for sepsis, given her urine culture was positive for coagulase negative staph and Ecoli. However her blood cultures remained negative so broad spectrum IV abx discontinued. Dr Shah consulted, she was given 1x dose of fosfomycin along with prescription for methenamine on discharge. Patient was also prescribed Macrobid by Dr Scott which she refused on discharge, Dr Scott notified. She is to follow up in my clinic in 1 week, with Dr Scott and Dr Arevalo as scheduled. Dr Scott plans to perform urodynamic studies in outpatient setting for interstitial cystitis. Physical Exam: Vitals: Temp: 98.0P:83BP:142/71RR: 18SpO2: 99% General Appearance: The patient is alert, oriented and in no acute distress. Appears euvolemic. Skin: Warm and hydrated without any rash. HEENT: Head is normocephalic, atraumatic. Nontender sinuses. Pupils are equal and reactive. The nares are patent. Oropharynx is moist and clear without lesions. Neck: Supple without lymphadenopathy. No JVD. 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 Normal S1 and S2 without S3/S4. No murmurs, rubs or gallops. Peripheral pulses symmetric +2. Respiratory / Chest: No crackles or wheezes are heard. Symmetric breath sounds. Preserved chest expansion. Abdomen: Soft, nontender, nondistended with good bowel sounds heard. No clinical organomegaly. Renal: There is no costovertebral angle tenderness. Extremities: Without cyanosis, clubbing or edema. Preserved ROM. Neurological: Gross nonfocal. Patient oriented x 3. Cranial nerves II - XII Grossly intact. DTRs +2. MS: 5/5 globally. Discharge medications: See discharge medication reconciliation Discharge plan: Condition on discharge: good Activity: as tolerated Diet: renal diet Follow-up: follow up in my clinic in [address] Scott and Dr Arevalo Time spent on discharge: 45 minutes
== END 2020-05-02 19:08 | disposition home or self-care (01) | DRG 683 ==
LOC: ER 10:48 → ERHOLD 16:35 → MED/SURG3 19:05 → OBSVTOIN 04-30 09:42
PROVIDERS: ADMIT Internal Medicine; ATTEND Internal Medicine
DX: N17.9 Acute kidney failure, unspecified (principal); K52.1 Toxic gastroenteritis and colitis; N18.4 Chronic kidney disease, stage 4 (severe); F31.9 Bipolar disorder, unspecified; F41.9 Anxiety disorder, unspecified; D64.9 Anemia, unspecified; N30.10 Interstitial cystitis (chronic) without hematuria; T36.95XA Adverse effect of unspecified systemic antibiotic, initial encounter; I12.9 Hypertensive chronic kidney disease with stage 1 through stage 4 chronic kidney disease, or unspecified chronic kidney disease; D47.2 Monoclonal gammopathy; Z11.59 Encounter for screening for other viral diseases; N28.1 Cyst of kidney, acquired; R33.9 Retention of urine, unspecified; K58.9 Irritable bowel syndrome, unspecified
CPT/HCPCS: 36415; 71045; 74176; 78582; 80048; 80053; 80061; 80178; 81001; 82550; 82553; 82607; 82728; 82746; 83540; 83605; 83735; 83880; 84100; 84439; 84443; 84466; 84484; 85025; 85045; 85610; 85730; 87040; 87086; 87186; 87493; 93306; 96361; 99284; A9540; G0378; J0696; J1885; J2060; J2405; J3370; J7030

== ENCOUNTER 2020-06-18 09:14 | Inpatient (IN) | payer MEDICARE ==
[~2020-06-18] VITALS: Ht 162.6 cm; Wt 67.1 kg
[~2020-06-18 09:14] MED LIST: CLONAZEPAM0.5 MG PO; DIOVAN160 MG PO; ELMIRON100 MG PO; LAMOTRIGINE100 MG PO; LEVOCETIRIZINE D5 MG PO; LEVOTHYROXINE50 MCG PO; LIDOPATCH1 EACH TOP; LORAZEPAM2 MG/1 M1 PO; MIRALAX17 GM PO; NORCO 5-325 TA1 EACH PO; PREMARIN VAGINAL CRE VG; PROBIOTIC PO; [UNRECOGNIZED DRUG - OTHER] PO; [UNRECOGNIZED DRUG - OTHER] SL
[2020-06-18] MEDS ORDERED: SODIUM CHLORIDE 0.9% 1000ML 1,000 ML IV STA (09:47)
[2020-06-18 10:08] LABS: BASOPHILS # (AUTO) 0.1 (0.0-0.1); EOSINOPHILS % 0.3 % (0.0-6.0); HEMATOCRIT 36.4 % (34.2-44.1); HEMOGLOBIN 11.8 g/dL (12.0-16.0); LYMPHOCYTES # (AUTO) 0.8 (1.0-3.2); LYMPHOCYTES % 12.7 % (18.0-39.1); MEAN CORPUSCULAR HEMOGLOBIN 31.8 pg (28-32); MEAN CORPUSCULAR HGB CONC 32.4 g/dL (31-35); MEAN CORPUSCULAR VOLUME 98.1 fL (81-99); MONOCYTES # (AUTO) 0.6 (0.2-0.8); NEUTROPHILS # (AUTO) 4.5 (2.1-6.9); NEUTROPHILS % 75.7 % (38.7-80.0); PLATELET COUNT 162 x10e3/uL (140-360); RED BLOOD COUNT 3.71 x10e6/uL (3.6-5.1)
[2020-06-18 10:17] LABS: INR 1.07; PARTIAL THROMBOPLASTIN TIME 21.9 seconds (23.8-35.5); PROTHROMBIN TIME 14.5 seconds (11.9-14.5)
[2020-06-18 10:21] LABS: CLARITY,URINE CLEAR (CLEAR); COLOR,URINE YELLOW (YELLOW); KETONES,URINE 1+ (NEGATIVE); LEUKOCYTE ESTERASE ,URINE NEGATIVE (NEGATIVE); NITRITE,URINE NEGATIVE (NEGATIVE); PROTEIN,URINE DIPSTICK 1+ (NEGATIVE); URINE UROBILINOGEN 0.2 mg/dL (0.2 - 1)
[2020-06-18 10:22] LABS: AMPHETAMINES SCREEN,URINE NEGATIVE (NEGATIVE); BENZODIAZEPINES SCREEN,URINE NEGATIVE (NEGATIVE); PHENCYCLIDINE SCREEN,URINE NEGATIVE (NEGATIVE)
[2020-06-18 10:24] LABS: SALICYLATE < 5.0 mg/dL (0-30)
[2020-06-18 10:29] LABS: BACTERIA,URINE FEW /HPF; EPITHELIAL CELLS,URINE FEW /LPF; RBC,URINE 0-5 /HPF (0-5)
[2020-06-18 11:27] LABS: ALBUMIN 4.1 g/dL (3.5-5.0); ALBUMIN/GLOBULIN RATIO 1.2 (0.8-2.0); ANION GAP 18.1 mmol/L (8-16); CALCIUM 10.5 mg/dL (8.4-10.2); CREATININE, SERUM 2.45 mg/dL (0.57-1.11); POTASSIUM 4.1 mmol/L (3.5-5.1)
[2020-06-18 11:47] LABS: CREATINE KINASE MB 1.3 ng/mL (0-5.0); THYROID STIMULATING HORMONE 0.443 uIU/mL (0.350-4.940)
[2020-06-18] MEDS ORDERED: OMEPRAZOLE40 MG ×2 (14:25→19:18)
[2020-06-18] MEDS ORDERED: VALSARTAN80 MG (14:25)
[2020-06-18] MEDS ORDERED: LAMOTRIGINE200 MG (14:25)
[2020-06-18] MEDS ORDERED: MYRBETRIQ50 MG (14:25)
[2020-06-18] MEDS ORDERED: LORAZEPAM (14:25)
[2020-06-18] MEDS ORDERED: ONDANSETRON HCL INJ 2MG/ML 2ML 2 MG/ML VIAL IV PRN (14:30)
[2020-06-18] MEDS ORDERED: CEFTRIAXONE SOD 1 GM/NS 50 ML 50 ML IV SCH (15:30)
[2020-06-18] MEDS: SODIUM CHLORIDE 0.9% 1000ML 1,000 ML IV SCH (15:44)
[2020-06-18 16:40] VITALS: BP 107/71
[2020-06-18] MEDS ORDERED: NITROFURANTOIN MACROCRYSTALS 100 MG CAP PO SCH (17:00)
[2020-06-18] MEDS ORDERED: LORAZEPAM 1 MG TAB PO PRN (17:30)
[2020-06-18 18:30] VITALS: BP 107/71
[2020-06-18] MEDS ORDERED: CLONAZEPAM0.5 MG PO (18:43)
[2020-06-18] MEDS ORDERED: LEVOTHYROXINE50 MCG PO (19:18)
[2020-06-18] MEDS ORDERED: LEVOCETIRIZINE D5 MG (19:18)
[2020-06-18 19:28] VITALS: BP 107/71
[2020-06-18 20:00] VITALS: BP 123/68
[2020-06-18 21:00] VITALS: BP 123/68
[2020-06-18] MEDS ORDERED: CLONAZEPAM 0.5 MG TAB PO SCH (21:00)
[2020-06-19] VITALS (8 sets, daily range): BP systolic 101–130; BP diastolic 62–73
[2020-06-19] MEDS: SODIUM CHLORIDE 0.9% 1000ML 1,000 ML IV SCH (00:30)
[2020-06-19 05:57] LABS: EOSINOPHILS # (AUTO) 0.2 (0.0-0.4); EOSINOPHILS % 4.9 % (0.0-6.0); HEMATOCRIT 32.5 % (34.2-44.1); HEMOGLOBIN 10.6 g/dL (12.0-16.0); LYMPHOCYTES # (AUTO) 1.3 (1.0-3.2); LYMPHOCYTES % 34.8 % (18.0-39.1); MEAN CORPUSCULAR HEMOGLOBIN 32.2 pg (28-32); MEAN CORPUSCULAR HGB CONC 32.6 g/dL (31-35); MEAN CORPUSCULAR VOLUME 98.8 fL (81-99); MONOCYTES # (AUTO) 0.5 (0.2-0.8); MONOCYTES % 12.2 % (4.4-11.3); NEUTROPHILS # (AUTO) 1.8 (2.1-6.9); NEUTROPHILS % 46.8 % (38.7-80.0); PLATELET COUNT 133 x10e3/uL (140-360); RED BLOOD COUNT 3.29 x10e6/uL (3.6-5.1); RED CELL DISTRIBUTION WIDTH 12.8 % (11.7-14.4)
[2020-06-19 06:16] LABS: ALBUMIN 3.1 g/dL (3.5-5.0); ALBUMIN/GLOBULIN RATIO 1.1 (0.8-2.0); ANION GAP 11.8 mmol/L (8-16); CALCIUM 8.9 mg/dL (8.4-10.2); CREATININE, SERUM 1.86 mg/dL (0.57-1.11); POTASSIUM 3.8 mmol/L (3.5-5.1)
[2020-06-19] MEDS: PANTOPRAZOLE SOD 40 MG TABEC PO SCH ×2 (06:25→16:52)
[2020-06-19] MEDS: LEVOTHYROXINE SODIUM 50 MCG TAB PO SCH (06:25)
[2020-06-19] MEDS ORDERED: LAMOTRIGINE 100 MG TAB PO SCH (09:00)
[2020-06-19] MEDS ORDERED: CLONAZEPAM 0.5 MG TAB PO SCH (09:00)
[2020-06-19] MEDS: VALSARTAN 80 MG TAB PO SCH (09:12)
[2020-06-19] MEDS ORDERED: QUETIAPINE FUMARATE 25 MG TAB PO PRN (13:00)
[2020-06-19] MEDS: NITROFURANTOIN MACROCRYSTALS 100 MG CAP PO SCH (16:52)
[2020-06-19] MEDS: SOLIFENACIN SUCCINATE 5 MG TAB PO SCH (19:03)
[2020-06-19] MEDS ORDERED: POLYETHYLENE GLYCOL 3350 17 GM PACK PO SCH (21:00)
[2020-06-19] MEDS ORDERED: QUETIAPINE FUMARATE 25 MG TAB PO SCH (21:00)
[2020-06-20 00:31] VITALS: BP 109/72
[2020-06-20 05:30] VITALS: BP 95/55
[2020-06-20] MEDS: LEVOTHYROXINE SODIUM 50 MCG TAB PO SCH (06:00)
[2020-06-20 06:24] LABS: ANION GAP 9.5 mmol/L (8-16); CALCIUM 8.9 mg/dL (8.4-10.2); CREATININE, SERUM 1.98 mg/dL (0.57-1.11); POTASSIUM 3.5 mmol/L (3.5-5.1)
[2020-06-20] MEDS: PANTOPRAZOLE SOD 40 MG TABEC PO SCH (07:30)
[2020-06-20 08:59] VITALS: BP 95/55
[2020-06-20] MEDS: NITROFURANTOIN MACROCRYSTALS 100 MG CAP PO SCH (09:29)
[2020-06-20] MEDS: SOLIFENACIN SUCCINATE 5 MG TAB PO SCH (09:29)
[2020-06-20] MEDS: VALSARTAN 80 MG TAB PO SCH (09:29)
[2020-06-20 09:51] VITALS: BP 123/61
[2020-06-20] MEDS ORDERED: PANTOPRAZOLE SO40 MG PO (12:04)
[2020-06-20] MEDS ORDERED: MACROBID 100 M100 MG PO (12:07)
[2020-06-20] MEDS ORDERED: SEROQUEL25 MG PO (12:09)
[2020-06-20 12:50] VITALS: BP 126/65
[2020-06-20] MEDS ORDERED: ONDANSETRON HCL 4 MG ORAL DISINTEGRATING TAB PO PRN (13:45)
== END 2020-06-20 13:43 | DRG 885 ==
LOC: ER 09:22 → ERHOLD 14:32 → MED/SURG2 15:59 → OBSVTOIN 06-19 10:12
PROVIDERS: ADMIT Internal Medicine; ATTEND Internal Medicine
DX: F31.64 Bipolar disorder, current episode mixed, severe, with psychotic features (principal); N18.4 Chronic kidney disease, stage 4 (severe); R45.851 Suicidal ideations; E86.0 Dehydration; F41.9 Anxiety disorder, unspecified; E03.9 Hypothyroidism, unspecified; Z20.828 Contact with and (suspected) exposure to other viral communicable diseases; I12.9 Hypertensive chronic kidney disease with stage 1 through stage 4 chronic kidney disease, or unspecified chronic kidney disease; N30.10 Interstitial cystitis (chronic) without hematuria; R45.850 Homicidal ideations
CPT/HCPCS: 36415; 70450; 80048; 80053; 80307; 80320; 80329; 81001; 82550; 82553; 83605; 83735; 84443; 84484; 85025; 85610; 85730; 87086; 99284; G0378; J0696; J7030; U0002

== ENCOUNTER → 2020-12-29 | Outpatient (CLI) | payer MEDICARE ==
[~2020-12-29] MED LIST changes: +LAMOTRIGINE200 MG; +LEVOCETIRIZINE D5 MG; +LORAZEPAM; +MACROBID 100 M100 MG PO; +MYRBETRIQ50 MG; +OMEPRAZOLE40 MG; +PANTOPRAZOLE SO40 MG PO; +SEROQUEL25 MG PO; +VALSARTAN80 MG
== END ==
LOC: US 09:14
PROVIDERS: ATTEND Internal Medicine Nephrology
DX: N18.4 Chronic kidney disease, stage 4 (severe) (principal)
CPT/HCPCS: 76770; 76857

== ENCOUNTER → 2021-03-06 | Day surgery (SDC) | payer MEDICARE ==
[2021-02-05 09:42] LABS: BASOPHILS % 0.6 % (0.0-1.0); EOSINOPHILS # (AUTO) 0.1 (0.0-0.4); EOSINOPHILS % 1.9 % (0.0-6.0); HEMATOCRIT 31.7 % (34.2-44.1); HEMOGLOBIN 9.8 g/dL (12.0-16.0); LYMPHOCYTES # (AUTO) 1.5 (1.0-3.2); LYMPHOCYTES % 30.8 % (18.0-39.1); MEAN CORPUSCULAR HEMOGLOBIN 31.1 pg (28-32); MEAN CORPUSCULAR HGB CONC 30.9 g/dL (31-35); MEAN CORPUSCULAR VOLUME 100.6 fL (81-99); MONOCYTES # (AUTO) 0.5 (0.2-0.8); NEUTROPHILS # (AUTO) 2.7 (2.1-6.9); NEUTROPHILS % 56.3 % (38.7-80.0); PLATELET COUNT 202 x10e3/uL (140-360); RED BLOOD COUNT 3.15 x10e6/uL (3.6-5.1); RED CELL DISTRIBUTION WIDTH 13.2 % (11.7-14.4)
[2021-02-05 10:05] LABS: ALBUMIN 3.6 g/dL (3.5-5.0); ALBUMIN/GLOBULIN RATIO 0.9 (0.8-2.0); ANION GAP 13.5 mmol/L (8-16); CALCIUM 9.2 mg/dL (8.4-10.2); CREATININE, SERUM 2.16 mg/dL (0.57-1.11); POTASSIUM 4.5 mmol/L (3.5-5.1)
[2021-03-04 08:32] LABS: BASOPHILS # (AUTO) 0.1 (0.0-0.1); BASOPHILS % 1.9 % (0.0-1.0); EOSINOPHILS # (AUTO) 0.1 (0.0-0.4); EOSINOPHILS % 3.6 % (0.0-6.0); HEMATOCRIT 32.5 % (34.2-44.1); HEMOGLOBIN 10.2 g/dL (12.0-16.0); LYMPHOCYTES # (AUTO) 1.4 (1.0-3.2); LYMPHOCYTES % 38.6 % (18.0-39.1); MEAN CORPUSCULAR HEMOGLOBIN 31.5 pg (28-32); MEAN CORPUSCULAR HGB CONC 31.4 g/dL (31-35); MEAN CORPUSCULAR VOLUME 100.3 fL (81-99); MONOCYTES # (AUTO) 0.4 (0.2-0.8); MONOCYTES % 11.8 % (4.4-11.3); NEUTROPHILS # (AUTO) 1.6 (2.1-6.9); NEUTROPHILS % 43.8 % (38.7-80.0); PLATELET COUNT 195 x10e3/uL (140-360); RED BLOOD COUNT 3.24 x10e6/uL (3.6-5.1); RED CELL DISTRIBUTION WIDTH 13.2 % (11.7-14.4)
[2021-03-04 09:01] LABS: ALBUMIN 3.7 g/dL (3.5-5.0); ALBUMIN/GLOBULIN RATIO 1.1 (0.8-2.0); ANION GAP 14.8 mmol/L (8-16); CALCIUM 9.5 mg/dL (8.4-10.2); CREATININE, SERUM 2.13 mg/dL (0.57-1.11); POTASSIUM 4.8 mmol/L (3.5-5.1)
[~2021-03-06] MED LIST changes: +ACETAMINOPHEN325 M1 PO; +B12 ACTIVE1000 MCG PO; +BELLADONNA/OPIUM 30 MG SUPP RC ONE; +COGENTIN2 MG/2 ML PO; +D3 PO; +DULCOLAX5 MG PO; +GENTAMICIN 80MG/NS 100 ML 200 ML IV ONE; +IOPAMIDOL 300MG/ML 50ML INFUS..BTL IV ONE; +LEXAPRO5 MG PO; +LOSARTAN POTASS25 MG PO; +OMEPRAZOLE40 MG PO; +PROBIOTIC & AC1 EACH PO; -VALSARTAN80 MG; +VALSARTAN80 MG PO; +VIT D2 PO; +[UNRECOGNIZED DRUG - OTHER] PO
[2021-03-06 08:25] LABS: INR 0.95; PROTHROMBIN TIME 12.9 seconds (11.9-14.5)
[2021-03-06 08:26] LABS: PARTIAL THROMBOPLASTIN TIME 28.3 seconds (23.8-35.5)
[2021-03-06 09:58] VITALS: BP 127/56
== END | disposition home or self-care (01) ==
LOC: OR 06:47
PROVIDERS: ATTEND Urology
DX: N30.10 Interstitial cystitis (chronic) without hematuria (principal); N28.9 Disorder of kidney and ureter, unspecified; N35.92 Unspecified urethral stricture, female; N81.10 Cystocele, unspecified; N95.2 Postmenopausal atrophic vaginitis; N39.46 Mixed incontinence; N32.81 Overactive bladder; N28.1 Cyst of kidney, acquired; N81.89 Other female genital prolapse; I13.0 Hypertensive heart and chronic kidney disease with heart failure and stage 1 through stage 4 chronic kidney disease, or unspecified chronic kidney disease; N18.4 Chronic kidney disease, stage 4 (severe); I50.9 Heart failure, unspecified; N20.0 Calculus of kidney; I25.2 Old myocardial infarction; D64.9 Anemia, unspecified; E03.9 Hypothyroidism, unspecified; K21.9 Gastro-esophageal reflux disease without esophagitis; I44.7 Left bundle-branch block, unspecified; F31.9 Bipolar disorder, unspecified; Z01.810 Encounter for preprocedural cardiovascular examination; Z01.812 Encounter for preprocedural laboratory examination; Z01.818 Encounter for other preprocedural examination; Z20.822 Contact with and (suspected) exposure to COVID-19
CPT/HCPCS: 36415 ×3; 52260; 71046; 74420; 80053 ×2; 85025 ×2; 85610; 85730; 87086; 93005; C1758; J1580; Q9967; U0002 ×2

== ENCOUNTER → 2021-05-11 | Day surgery (SDC) | payer MEDICARE ==
[2021-05-08 08:31] LABS: BASOPHILS % 1.3 % (0.0-1.0); EOSINOPHILS # (AUTO) 0.1 (0.0-0.4); EOSINOPHILS % 2.9 % (0.0-6.0); HEMATOCRIT 33.6 % (34.2-44.1); HEMOGLOBIN 10.6 g/dL (12.0-16.0); LYMPHOCYTES # (AUTO) 1.1 (1.0-3.2); LYMPHOCYTES % 36.1 % (18.0-39.1); MEAN CORPUSCULAR HEMOGLOBIN 32.1 pg (28-32); MEAN CORPUSCULAR HGB CONC 31.5 g/dL (31-35); MEAN CORPUSCULAR VOLUME 101.8 fL (81-99); MONOCYTES # (AUTO) 0.4 (0.2-0.8); MONOCYTES % 12.6 % (4.4-11.3); NEUTROPHILS # (AUTO) 1.5 (2.1-6.9); NEUTROPHILS % 46.8 % (38.7-80.0); PLATELET COUNT 192 x10e3/uL (140-360); RED CELL DISTRIBUTION WIDTH 13.8 % (11.7-14.4)
[2021-05-08 08:47] LABS: INR 0.93; PROTHROMBIN TIME 13.2 seconds (11.9-14.5)
[2021-05-08 08:48] LABS: PARTIAL THROMBOPLASTIN TIME 27.9 seconds (23.8-35.5)
[2021-05-08 08:57] LABS: ALBUMIN 3.7 g/dL (3.5-5.0); ALBUMIN/GLOBULIN RATIO 1.1 (0.8-2.0); ANION GAP 13.3 mmol/L (8-16); CALCIUM 9.2 mg/dL (8.4-10.2); CREATININE, SERUM 2.23 mg/dL (0.57-1.11); POTASSIUM 4.3 mmol/L (3.5-5.1)
[2021-05-08 09:10] LABS: EOSINOPHILS % (MANUAL) 4 % (0-7); LYMPHOCYTES % (MANUAL) 36 % (19-48); MONOCYTES % (MANUAL) 10 % (3.4-9.0); NEUTROPHILS % (MANUAL) 45 % (40-74)
[2021-05-08 09:11] LABS: PLATELET ESTIMATE ADEQUATE; PLATELET MORPHOLOGY COMMENT NORMAL; RBC MORPHOLOGY COMMENT ABNORMAL
[~2021-05-11] MED LIST changes: -BELLADONNA/OPIUM 30 MG SUPP RC ONE; +BOTULINUM TOXIN TYPE A 100 UNIT VIAL IM ONE; +BUPIVACAINE 0.25% 30ML SDV ONE; +DEXAMETHASONE SOD PHOS INJ 4 MG/ML SDV ONE; +EPHEDRINE SULFATE INJ 50 MG/ML VIAL ONE; +FENTANYL CITRATE/PF 100MCG/2 ML INJ ONE; -GENTAMICIN 80MG/NS 100 ML 200 ML IV ONE; +GLYCOPYRROLATE INJ 0.2 MG/ML VIAL ONE; -IOPAMIDOL 300MG/ML 50ML INFUS..BTL IV ONE; +LIDOCAINE HCL 1% LOCAL INJ 20 ML VIAL ONE; +LIDOCAINE HCL 2% LOCAL INJ 5 ML SDV VIAL INJ ONE; +MIDAZOLAM HCL 2 MG/2 ML VIAL ONE; -MYRBETRIQ50 MG; +MYRBETRIQ50 MG PO; +ONDANSETRON HCL INJ 2MG/ML 2ML 2 MG/ML VIAL ONE; +POVIDONE IODINE 0.05% 0.05 % ML PO ONE; +PROPOFOL IV EMULSION 10 MG/ML 20 ML VIAL ONE; +RAYALDEE30 MCG PO; +SEVOFLURANE INHAL SOLN 250 ML PEN BTL ONE
[2021-05-11 10:40] VITALS: BP 116/61
== END | disposition home or self-care (01) ==
LOC: OR 06:21
PROVIDERS: ATTEND Surgery
DX: K62.89 Other specified diseases of anus and rectum (principal); M62.89 Other specified disorders of muscle; K56.609 Unspecified intestinal obstruction, unspecified as to partial versus complete obstruction; K59.00 Constipation, unspecified; K59.4 Anal spasm; D50.9 Iron deficiency anemia, unspecified; I12.9 Hypertensive chronic kidney disease with stage 1 through stage 4 chronic kidney disease, or unspecified chronic kidney disease; N18.9 Chronic kidney disease, unspecified; I44.7 Left bundle-branch block, unspecified; F31.9 Bipolar disorder, unspecified; Z01.810 Encounter for preprocedural cardiovascular examination; Z01.812 Encounter for preprocedural laboratory examination; Z20.822 Contact with and (suspected) exposure to COVID-19
CPT/HCPCS: 36415; 45378; 46505; 80053; 85025; 85610; 85730; 93005; J0587; J1100; J2001 ×2; J2250; J2405; J2704; J3010; U0002

== ENCOUNTER → 2021-06-25 | Outpatient (CLI) | payer MEDICARE ==
[~2021-06-25] MED LIST changes: -BOTULINUM TOXIN TYPE A 100 UNIT VIAL IM ONE; -BUPIVACAINE 0.25% 30ML SDV ONE; -DEXAMETHASONE SOD PHOS INJ 4 MG/ML SDV ONE; -EPHEDRINE SULFATE INJ 50 MG/ML VIAL ONE; -FENTANYL CITRATE/PF 100MCG/2 ML INJ ONE; -GLYCOPYRROLATE INJ 0.2 MG/ML VIAL ONE; -LIDOCAINE HCL 1% LOCAL INJ 20 ML VIAL ONE; -LIDOCAINE HCL 2% LOCAL INJ 5 ML SDV VIAL INJ ONE; -MIDAZOLAM HCL 2 MG/2 ML VIAL ONE; -ONDANSETRON HCL INJ 2MG/ML 2ML 2 MG/ML VIAL ONE; -POVIDONE IODINE 0.05% 0.05 % ML PO ONE; -PROPOFOL IV EMULSION 10 MG/ML 20 ML VIAL ONE; -SEVOFLURANE INHAL SOLN 250 ML PEN BTL ONE
== END ==
LOC: US 13:50
PROVIDERS: ATTEND Internal Medicine Nephrology
DX: N18.4 Chronic kidney disease, stage 4 (severe) (principal); N28.1 Cyst of kidney, acquired
CPT/HCPCS: 76770; 76857

== ENCOUNTER 2021-06-30 13:00 | Outpatient (RCR) | payer MEDICARE | END 2021-07-03 | LOC: PT 13:00 | PROVIDERS: ATTEND Internal Medicine | DX: M54.50 Low back pain, unspecified (principal) ==

== ENCOUNTER → 2021-10-23 | Day surgery (SDC) | payer MEDICARE ==
[2021-10-22 09:43] LABS: BASOPHILS # (AUTO) 0.1 (0.0-0.1); BASOPHILS % 2.2 % (0.0-1.0); EOSINOPHILS # (AUTO) 0.4 (0.0-0.4); EOSINOPHILS % 7.6 % (0.0-6.0); HEMATOCRIT 34.6 % (34.2-44.1); HEMOGLOBIN 10.8 g/dL (12.0-16.0); MEAN CORPUSCULAR HEMOGLOBIN 33.2 pg (28-32); MEAN CORPUSCULAR HGB CONC 31.2 g/dL (31-35); MEAN CORPUSCULAR VOLUME 106.5 fL (81-99); MONOCYTES # (AUTO) 0.6 (0.2-0.8); MONOCYTES % 12.2 % (4.4-11.3); NEUTROPHILS # (AUTO) 1.6 (2.1-6.9); NEUTROPHILS % 34.8 % (38.7-80.0); PLATELET COUNT 182 x10e3/uL (140-360); RED BLOOD COUNT 3.25 x10e6/uL (3.6-5.1); RED CELL DISTRIBUTION WIDTH 12.9 % (11.7-14.4)
[2021-10-22 10:04] LABS: ANION GAP 15.1 mmol/L (8-16); CALCIUM 9.1 mg/dL (8.4-10.2); CREATININE, SERUM 2.07 mg/dL (0.57-1.11); POTASSIUM 4.1 mmol/L (3.5-5.1)
[2021-10-22 10:16] LABS: INR 0.93; PARTIAL THROMBOPLASTIN TIME 26.4 seconds (23.8-35.5); PROTHROMBIN TIME 13.3 seconds (11.9-14.5)
[2021-10-22 11:31] LABS: EOSINOPHILS % (MANUAL) 10 % (0-7); LYMPHOCYTES % (MANUAL) 47 % (19-48); MONOCYTES % (MANUAL) 12 % (3.4-9.0); NEUTROPHILS % (MANUAL) 28 % (40-74)
[2021-10-22 11:32] LABS: PLATELET ESTIMATE ADEQUATE; PLATELET MORPHOLOGY COMMENT NORMAL; RBC MORPHOLOGY COMMENT NORMAL
[~2021-10-23] MED LIST changes: +B&O 60MG R/S 60 MG SUPP PR ONE; +BENADRYL25 M1 PO; +DEXAMETHASONE SOD PHOS INJ 4 MG/ML SDV ONE; +FENTANYL CITRATE/PF 100MCG/2 ML INJ ONE; +GENTAMICIN 80MG/NS 100 ML 200 ML IV ONE; +IOHEXOL 300 MG/ML 30ML INFUS..BTL ONE; +LIDOCAINE HCL 2% LOCAL INJ 5 ML SDV VIAL INJ ONE; +LYRICA50 MG PO; +MIDAZOLAM HCL 2 MG/2 ML VIAL ONE; +ONDANSETRON HCL INJ 2MG/ML 2ML 2 MG/ML VIAL ONE; +POVIDONE IODINE 0.05% 0.05 % ML PO ONE; +PROPOFOL IV EMULSION 10 MG/ML 20 ML VIAL ONE; +SEVOFLURANE INHAL SOLN 250 ML PEN BTL ONE; +VITAMIN B12 PO
[2021-10-23 13:10] VITALS: BP 137/65
== END | disposition home or self-care (01) ==
LOC: OR 09:17
PROVIDERS: ATTEND Urology
DX: N30.10 Interstitial cystitis (chronic) without hematuria (principal); N32.89 Other specified disorders of bladder; N81.10 Cystocele, unspecified; N95.2 Postmenopausal atrophic vaginitis; I12.9 Hypertensive chronic kidney disease with stage 1 through stage 4 chronic kidney disease, or unspecified chronic kidney disease; N18.9 Chronic kidney disease, unspecified; D64.9 Anemia, unspecified; J45.909 Unspecified asthma, uncomplicated; I44.7 Left bundle-branch block, unspecified; K21.9 Gastro-esophageal reflux disease without esophagitis; F31.9 Bipolar disorder, unspecified; F41.9 Anxiety disorder, unspecified; Z01.810 Encounter for preprocedural cardiovascular examination; Z01.812 Encounter for preprocedural laboratory examination; Z20.822 Contact with and (suspected) exposure to COVID-19; Z79.899 Other long term (current) drug therapy; Z87.891 Personal history of nicotine dependence
CPT/HCPCS: 36415; 52260; 74420; 80048; 85025; 85610; 85730; 93005; C1758; J1100; J1580; J2001; J2250; J2405; J2704; J3010; Q9967; U0002

== ENCOUNTER → 2023-04-08 | Day surgery (SDC) | payer MEDICARE ==
[2023-04-06 13:58] LABS: BASOPHILS # (AUTO) 0.1 (0.0-0.1); BASOPHILS % 1.3 % (0.0-1.0); EOSINOPHILS # (AUTO) 0.1 (0.0-0.4); EOSINOPHILS % 2.5 % (0.0-6.0); HEMATOCRIT 33.2 % (34.2-44.1); HEMOGLOBIN 11.3 g/dL (12.0-16.0); LYMPHOCYTES # (AUTO) 1.9 (1.0-3.2); LYMPHOCYTES % 34.7 % (18.0-39.1); MEAN CORPUSCULAR HEMOGLOBIN 32.8 pg (28-32); MEAN CORPUSCULAR VOLUME 96.5 fL (81-99); MONOCYTES # (AUTO) 0.6 (0.2-0.8); NEUTROPHILS # (AUTO) 2.8 (2.1-6.9); NEUTROPHILS % 51.3 % (38.7-80.0); PLATELET COUNT 235 x10e3/uL (140-360); RED BLOOD COUNT 3.44 x10e6/uL (3.6-5.1); RED CELL DISTRIBUTION WIDTH 12.7 % (11.7-14.4)
[2023-04-06 14:04] LABS: INR 0.95; PROTHROMBIN TIME 13.2 seconds (11.9-14.5)
[2023-04-06 14:05] LABS: PARTIAL THROMBOPLASTIN TIME 26.1 seconds (23.8-35.5)
[2023-04-06 14:12] LABS: ANION GAP 14.2 mmol/L (8-16); CALCIUM 9.7 mg/dL (8.4-10.2); CREATININE, SERUM 2.77 mg/dL (0.57-1.11); POTASSIUM 4.2 mmol/L (3.5-5.1)
[~2023-04-08] MED LIST changes: -B&O 60MG R/S 60 MG SUPP PR ONE; -IOHEXOL 300 MG/ML 30ML INFUS..BTL ONE; +IOPAMIDOL 610MG/1ML 300 MG/ML VIAL IV ONE; +LACTATED RINGER'S 1,000 ML ONE; +OZEMPIC0.25 MG/02 SQ; +PHENAZOPYRIDINE HCL 100 MG TAB ONE; +PHENAZOPYRIDINE HCL 100 MG TAB PO ONE; -POVIDONE IODINE 0.05% 0.05 % ML PO ONE
[2023-04-08 10:00] VITALS: BP 117/78; PULSE 70; RESP 12; O2SAT 97
== END | disposition home or self-care (01) ==
LOC: OR 05:31
PROVIDERS: ATTEND Urology
DX: N30.10 Interstitial cystitis (chronic) without hematuria (principal); N81.10 Cystocele, unspecified; N81.6 Rectocele; N95.2 Postmenopausal atrophic vaginitis; I12.9 Hypertensive chronic kidney disease with stage 1 through stage 4 chronic kidney disease, or unspecified chronic kidney disease; N18.4 Chronic kidney disease, stage 4 (severe); E03.9 Hypothyroidism, unspecified; J45.909 Unspecified asthma, uncomplicated; I44.7 Left bundle-branch block, unspecified; F31.9 Bipolar disorder, unspecified; F41.9 Anxiety disorder, unspecified; Z01.810 Encounter for preprocedural cardiovascular examination; Z01.812 Encounter for preprocedural laboratory examination; Z01.818 Encounter for other preprocedural examination; Z79.899 Other long term (current) drug therapy
CPT/HCPCS: 36415; 52260; 71046; 74420; 80048; 85025; 85610; 85730; 87086; 93005; C1758; J1100; J1580; J2001; J2250; J2405; J2704; J3010; J7121; Q9967